=== PATIENT | female | born 1980 | race Caucasian/White ===

== ENCOUNTER 2023-02-10 13:12 | Outpatient (CLI) | payer OTHER, SELFPAY | END 2023-02-10 13:13 | disposition home or self-care (01) | LOC: NFLDREF 13:13 | PROVIDERS: PCP Family Medicine; Visit Provider Internal Medicine | DX: L67.9 Hair color and hair shaft abnormality, unspecified (principal) | CPT/HCPCS: 84443 ==

== ENCOUNTER 2023-02-11 22:23 | Emergency (ER) | payer OTHER, SELFPAY ==
[2023-02-11 22:41] VITALS: BP 139/78; PULSE 98; RESP 20; TEMP 36.6; O2SAT 97
--- NOTE | 2023-02-11 22:59 | ED.GENADULT ---
HPI - General Adult General Chief complaint: Skin/Abscess/Foreign Body Stated complaint: Infected boil Time Seen by Provider: 02/11/23 22:27 Source: patient Mode of arrival: ambulatory Limitations: no limitations History of Present Illness HPI narrative: 42-year-old female coming in today complaining of worsening pain in the groin secondary to infection. She was seen in the clinic yesterday and diagnosed with a groin abscess. She was told to start taking antibiotics and to do warm compresses. 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 Of note, patient states that she had hives when she was a child when she took penicillin. She denies any systemic symptoms. Comes in today because her groin is becoming more painful. Patient denies any past medical history, denies taking any medications. Related Data Previous Rx's Medication Instructions Recorded cephalexin 500 mg capsule 500 mg PO TID Abscess 7 days #21 02/10/23 caps sulfamethoxazole 800 1 tab PO BID 7 days #14 tabs 02/11/23 mg-trimethoprim 160 mg tablet (Bactrim DS) Allergies Allergy/AdvReac Type Severity Reaction Status Date / Time Penicillins Allergy Mild Unknown Verified 02/10/23 12:41 Review of Systems Status of ROS: Reports: 10 or more systems reviewed and unremarkable except as noted in History and below [facility] Medical History (Updated 02/11/23 @ 23:04 by Shania Chambers MD) Abscess ?L02.91 - Cutaneous abscess, unspecified (ICD-10) Hair changes ?L67.9 - Hair color and hair shaft abnormality, unspecified (ICD-10) Surgical History H/O tubal ligation (~2006) ?Z98.51 - Tubal ligation status (ICD-10) History of umbilical hernia repair (01/06/21) ?Z98.890 - Other specified postprocedural states (ICD-10) ?Z87.19 - Personal history of other diseases of the digestive system (ICD-10) History of surgical removal of pilonidal cyst (2000) ?Z98.890 - Other specified postprocedural states (ICD-10) History of ovarian cystectomy (2006) ?Z98.890 - Other specified postprocedural states (ICD-10) ?Z87.42 - Personal history of other diseases of the female genital tract (ICD-10) History of lumbar discectomy (05/24/13) ?Z98.890 - Other specified postprocedural states (ICD-10) 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 Alert and oriented. Answers questions appropriately. Mood and affect are appropriate. Thoughts are goal oriented and rational. No tangential or magical thinking noted. Patient speaks in full sentences without needing to catch their breath. HEENT: Normocephalic atraumatic. Pupils are equally round reactive to light. Extraocular muscles are intact. Conjunctivae are moist without any icterus noted. Moist mucous membranes. Skin: Patient has an obvious abscess of the right inguinal region with a area of fluctuance about the size of a quarter. She does have surrounding induration and erythema. Const: Vital Signs, click to edit/add: Vital Signs - 24 hr 02/11/23 22:41 Temperature 97.8 F Pulse Rate [Left P ulse Oximeter] 98 Respiratory Rate 20 Blood Pressure [Ri ght Upper Arm] 139/78 Pulse Oximetry 97 Oxygen Delivery Me thod Room Air Course Course Hospital Course: While in the ER, we cleaned the area and injected the skin with lidocaine. An 11 blade was used to make a small incision over the area of fluctuance and approximately 10 mL of humera pus was expelled. Wound culture was obtained. Wound was explored and loculations were broken with a Q-tip, the entire wound was perhaps 1 cm deep and wide at best. Vital Signs Vital signs: Initial Vital Signs Temperature 97.8 F 02/11/23 22:41 Temperature Source Temporal Artery Scan 02/11/23 22:41 Pulse Rate 98 02/11/23 22:41 Respiratory Rate 20 02/11/23 22:41 Blood Pressure 139/78 02/11/23 22:41 Blood Pressure Mean 98 02/11/23 22:41 Blood Pressure Position Sitting 02/11/23 22:41 Pulse Oximetry 97 02/11/23 22:41 Oxygen Delivery Method Room Air 02/11/23 22:41 Vital Signs Temperature 97.8 F 02/11/23 22:41 Pulse Rate 98 02/11/23 22:41 Respiratory Rate 20 02/11/23 22:41 Blood Pressure 139/78 02/11/23 22:41 Pulse Oximetry 97 02/11/23 22:41 Oxygen Delivery Method Room Air 02/11/23 22:41 Temperature 97.8 F 02/11/23 22:41 Pulse Rate 98 02/11/23 22:41 Respiratory Rate 20 02/11/23 22:41 Blood Pressure 139/78 02/11/23 22:41 Pulse Oximetry 97 02/11/23 22:41 Oxygen Delivery Method Room Air 02/11/23 22:41 Medical Decision Making MDM Narrative Medical decision making narrative: 42-year-old female with an abscess in the groin area that was I indeed in the ER today. We discussed wound hygiene. I am going to prescribe her Bactrim as she is refusing to take cephalosporins. We discussed follow-up. She had no other questions. Medical Records Medical records reviewed: Yes I reviewed the patient's medical records Discharge Plan Discharge Clinical Impression: Abscess, Cellulitis Patient Disposition: Home, Self-Care Condition: Stable Additional Instructions: Take all antibiotics as prescribed. Keep wound clean and dry. Okay to shower like he normally would but do not soak the wound-avoid swimming. Change dressing daily. You should follow-up with your primary care provider next Wednesday or Wednesday to make sure you are healing properly. Prescriptions: New sulfamethoxazole-trimethoprim [Bactrim DS] 800-160 mg tablet 1 tab PO BID 7 Days Qty: 14 0RF No Action cephalexin 500 mg capsule 500 mg PO TID 7 Days Qty: 21 0RF Rx Instructions: Pt not allergic to keflex Follow Up/Referrals: Jc Hayes MD [Primary Care Provider] - Stand Alone Forms: [facility] Info Instructions
== END 2023-02-11 23:25 | disposition home or self-care (01) ==
LOC: ED 23:12
PROVIDERS: Emergency Provider Family Medicine; PCP Family Medicine
DX: L02.214 Cutaneous abscess of groin (principal)
CPT/HCPCS: 10060; 87070; 87186; 87205; 99283; 99284; A9270

== ENCOUNTER 2023-04-18 12:38 | Emergency (ER) | payer OTHER, SELFPAY ==
[2023-04-18] VITALS (18 sets, daily range): BP systolic 71–125; BP diastolic 34–93; PULSE 77–94; RESP 20; TEMP 36.3; O2SAT 96–99; BMI 40.7
--- NOTE | 2023-04-18 12:57 | ED.ABDPAIN ---
HPI - Abdominal Pain General Time Seen by Provider: 12:57 Date Seen: 04/18/23 Chief Complaint: Abdominal Pain Stated Complaint: abdominal and back pain Time Seen by Provider: 04/18/23 12:47 Source: patient and RN notes reviewed Mode of arrival: ambulatory Limitations: no limitations History of Present Illness HPI narrative: This 43-year-old female is coming in with abdominal pain starting yesterday. She was camping over the weekend, started with right upper back pain/flank pain. It started after eating. She states it intensified to the point that she went back into the camper to lie down. She had a sharp punch type feeling in the back, pain started to radiate into the right upper abdomen and later she felt at all the way around the upper abdomen. She did try eating this morning and that intensified the pain and she had a severe cramping type feeling. She has had nausea but no vomiting. No fevers. No diarrhea, no bowel movement today but no concern for constipation at this point. No urinary symptoms. She has had an umbilical hernia repair with mesh before. There is no family history of gallbladder disease but there is kidney stones in the family. Overall, her pain is not as bad as it has been at this time, still nauseated. In patient's records, she has also had an ovarian cystectomy and a tubal ligation. MD elicited complaint: abdominal pain and flank pain Related Data Patient : No Home Medications Medication Instructions Recorded Confirmed omeprazole 20 mg capsule,delayed 20 mg PO DAILY 04/18/23 04/18/23 release Allergies Allergy/AdvReac Type Severity Reaction Status Date / Time Penicillins Allergy Unknown Unknown Verified 04/18/23 12:52 Review of Systems Status of ROS Reports: 6 or more systems reviewed and unremarkable except as noted in History and below [facility] Medical History Abscess ?L02.91 - Cutaneous abscess, unspecified (ICD-10) Hair changes ?L67.9 - Hair color and hair shaft abnormality, unspecified (ICD-10) Surgical History H/O tubal ligation (~2006) ?Z98.51 - Tubal ligation status (ICD-10) History of umbilical hernia repair (01/06/21) ?Z98.890 - Other specified postprocedural states (ICD-10) ?Z87.19 - Personal history of other diseases of the digestive system (ICD-10) History of surgical removal of pilonidal cyst (2000) ?Z98.890 - Other specified postprocedural states (ICD-10) History of ovarian cystectomy (2006) ?Z98.890 - Other specified postprocedural states (ICD-10) ?Z87.42 - Personal history of other diseases of the female genital tract (ICD-10) History of lumbar discectomy (05/24/13) ?Z98.890 - Other specified postprocedural states (ICD-10) 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, 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 Social alcohol use 1/week Does not have regular exercise regimen-housework, yardwork, occasional treadmill Smoking Status: Current every day smoker What tobacco products do you use: cigarettes Smoking packs per day: 1 Smoking cigarettes per day: 20.0 Do you use any of these nicotine containing products: None How often do you have a drink containing alcohol: 2-3 times a week How many standard drinks containing alcohol do you have on a typical day: 3 or 4 How often do you have six or more drinks on one occasion: Never AUDIT-C Alcohol total score: 4 Non-prescribed substance use: denies use Little interest or pleasure in doing things: not at all Feeling down, depressed, or hopeless: not at all Exam Const: Vital Signs, click to edit/add: Vital Signs - 24 hr 04/18/23 12:45 04/18/23 13:15 04/18/23 14:02 Temperature 97.3 F L Pulse Rate 77 Pulse Rate [Pulse Oximeter] 84 Respiratory Rate 20 Blood Pressure 98/50 L Blood Pressure [Le ft Upper Arm] 122/64 Pulse Oximetry 97 98 98 Oxygen Delivery Me thod Room Air 04/18/23 14:03 04/18/23 14:30 04/18/23 14:31 Temperature Pulse Rate 77 78 78 Pulse Rate [Pulse Oximeter] Respiratory Rate Blood Pressure 113/52 L Blood Pressure [Le ft Upper Arm] Pulse Oximetry 98 97 98 Oxygen Delivery Me thod 04/18/23 15:05 04/18/23 15:08 04/18/23 15:30 Temperature Pulse Rate 94 92 85 Pulse Rate [Pulse Oximeter] Respiratory Rate Blood Pressure 106/93 H Blood Pressure [Le ft Upper Arm] Pulse Oximetry 98 98 97 Oxygen Delivery Me thod 04/18/23 15:32 04/18/23 15:33 04/18/23 17:18 Temperature Pulse Rate 83 87 87 Pulse Rate [Pulse Oximeter] Respiratory Rate Blood Pressure 116/73 Blood Pressure [Le ft Upper Arm] Pulse Oximetry 98 99 [facility] 17:30 04/18/23 17:31 04/18/23 17:32 Temperature Pulse Rate 80 81 80 Pulse Rate [Pulse Oximeter] Respiratory Rate Blood Pressure 125/59 L Blood Pressure [Le ft Upper Arm] Pulse Oximetry 97 96 97 [facility] 04/18/23 18:00 04/18/23 18:02 04/18/23 18:05 Temperature Pulse Rate 87 79 78 Pulse Rate [Pulse Oximeter] Respiratory Rate Blood Pressure 71/34 L 109/51 L Blood Pressure [Le ft Upper Arm] Pulse Oximetry 96 98 97 Oxygen Delivery Me thod This 43-year-old female is alert interactive no apparent distress. Pupils are equal, conjugate gaze, sclera clear. Face atraumatic. Able speak in complete sentences. Lungs are clear to auscultation bilaterally without wheezing crackles. CV regular rate rhythm no murmur. No CVA tenderness, no skin changes overlying the right flank area. No midline tenderness of her back. Abdomen with significant pannus but she is exhibiting some right upper quadrant to epigastric tenderness without rebound or guarding. I do not feel any organomegaly. Patient ambulated into the ED of her own accord. Documenting provider has reviewed patient's vital signs: yes Course Course Hospital Course: This 43-year-old female certainly could have intra-abdominal pathology, have discussed with her my concern for possible gallbladder issues, rule out pancreatitis with this. It is also feasible that this could be presentation of urinary issues such as kidney stones. We are going to stab lotion IV, give her 15 mg IV Toradol and 4 mg IV Zofran for symptom control. Will start with a right upper quadrant ultrasound and on full complement of labs including urine. Will make sure to confirm negative status but doubtful she would be given her history of tubal ligation. Will also obtain urine and consider kidney stones further if there is hematuria. Patient understands that we might need to proceed with CT imaging in this workup. She is currently hemodynamically stable and will proceed with this workup. Reevaluation(s) Time of Reevaluation #1: 15:33 Reevaluation #1: Reviewed with patient that she has pancreatitis, likely gallstone pancreatitis and with the elevated it size of the common bile duct, needs further evaluation. She will very likely get her gallbladder out but usually the common bile duct would be explored 1st. Is recommended that she transfer for ERCP. Right now she is feeling okay. Time of Reevaluation #2: 16:23 Reevaluation #2: Have reviewed with patient that she will likely be transferred to [facility], possibly [place] if [facility] does not except but reportedly longer delay to get [place]. She is requesting to smoke, will give her nicotine patch. Will start IV fluids. Consultations Consultation #1: Reviewed with Dr. Holland our general surgeon on-call. We have reviewed this case. She agrees that this patient needs an MRCP but we cannot do that until Wednesday here. Thus, she does think that this patient should be transferred for further evaluation common bile duct stone with pancreatitis. Time: 15:25 Consultation #2: [place], [place] and [place] are on diversion, cannot accept this patient. [facility] is awaiting to attempt to transfer some of their patients out before they can except more. [facility] is only taking trauma patients. [facility] is looking at [facility] as they are only possible placement, awaiting a call back. [facility] have no capacity anywhere. [facility] has no capacity for acceptance of patients. [facility] [place] only meaning multi-trauma, burn. I have updated the hospitalist here Dr. Greene at 1605pm. She will await call back from Dr. Banegas once we know [facility] Time: 15:35 Consultation #3: Spoke with Dr. Rosenthal hospitalist at [facility], they accept patient; there will likely be 4-8 hour transfer delay. Time: 16:28 Vital Signs Vital signs: Initial Vital Signs Temperature 97.3 F L 04/18/23 12:45 Temperature Source Temporal Artery Scan 04/18/23 12:45 Pulse Rate 84 04/18/23 12:45 Pulse Rhythm Regular 04/18/23 12:45 Respiratory Rate 20 04/18/23 12:45 Blood Pressure 122/64 04/18/23 12:45 Blood Pressure Mean 83 04/18/23 12:45 Blood Pressure Position Semi-Fowlers 04/18/23 12:45 Pulse Oximetry 97 04/18/23 12:45 Oxygen Delivery Method Room Air 04/18/23 12:45 Vital Signs Temperature 97.3 F L 04/18/23 12:45 Pulse Rate 84 04/18/23 12:45 Respiratory Rate 20 04/18/23 12:45 Blood Pressure 122/64 04/18/23 12:45 Pulse Oximetry 97 04/18/23 12:45 Oxygen Delivery Method Room Air 04/18/23 12:45 Temperature 97.3 F L 04/18/23 12:45 Pulse Rate 78 04/18/23 18:05 Respiratory Rate 20 04/18/23 12:45 Blood Pressure 109/51 L 04/18/23 18:05 Pulse Oximetry 97 04/18/23 18:05 Oxygen Delivery Method Room Air 04/18/23 12:45 MDM - Abdominal Pain Lab Data Attestation: I reviewed the patient's lab results. Labs: Lab Results 04/18/23 04/18/23 04/18/23 Range/Units 13:30 14:14 14:37 WBC 7.51 (4.50-11.00) K/uL RBC 4.37 (4.00-5.20) m/uL Hgb 11.6 L (12.0-16.0) gm/dL Hct 37.5 (33.0-51.0) % MCV 86 (80-100) fL MCH 27 (26-34) pg MCHC 31 L (32-36) gm/dL RDW Coeff of Osmani 15.5 (11.5-15.5) % Plt Count 284 (140-440) K/uL Neut % (Auto) 75.9 H (42.0-72.0) % Lymph % (Auto) 15.4 L (20-44) % [place] % (Auto) 7.1 (0.0-11.0) % Eos % (Auto) 0.8 (0.0-7.0) % Baso % (Auto) 0.5 (0.0-3.0) % Neut # (Auto) 5.70 (1.7-7.0) K/uL Lymph # (Auto) 1.20 (0.90-2.90) K/uL [place] # (Auto) 0.50 (0.00-0.90) K/UL Eos # (Auto) 0.06 (0.00-0.50) K/uL Baso # (Auto) 0.04 (0.00-0.30) K/uL Abs Immat Gran (auto) 0.02 (0.00-0.30) K/uL Imm/Tot Granulo (auto) 0.3 % Sodium 140 (135-149) mmol/L Potassium 3.6 (3.6-5.1) mmol/L Chloride 107 (96-114) mmol/L Carbon Dioxide 25 (20-32) mmol/L Anion Gap 8 (7-15) mEq/L BUN 10 (5-24) mg/dL Creatinine 0.6 (0.5-1.5) mg/dL Estimated Creat Clear 115.14 Estimated GFR 113 ml/min Glucose 135 H (60-115) mg/dL Lactate 1.3 (0.5-1.9) mmol/L Calcium 9.0 (8.4-10.6) mg/dL Total Bilirubin 1.4 (0.1-1.5) mg/dL Direct Bilirubin 0.9 H (0.0-0.5) mg/dL AST 308 H (12-35) U/L ALT 301 H (4-35) U/L Alkaline Phosphatase 249 H (40-150) U/L C-Reactive Protein 1.4 H (0.5-1.0) mg/dL Total Protein 7.0 (6.0-8.3) g/dL Albumin 3.9 (3.3-5.0) g/dL Amylase 528 H (18-89) U/L Lipase 6280 H (23-300) U/L Urine Color Dark yellow (Yellow) Urine Appearance Cloudy A (Clear) Urine pH 7.5 (5.0-8.5) Ur Specific [place] 1.020 (1.000-1.030) Urine Protein Negative (Negative) Urine Glucose (UA) Negative (Negative) Urine Ketones Negative (Negative) Urine Blood Trace-intact A (Negative) Urine Nitrite Negative (Negative) Urine Bilirubin 1+ A (Negative) Urine Urobilinogen 1.0 (0.2-1.0) Ur Leukocyte Esterase Trace A (Negative) Urine RBC 2-5 A (0-2) Urine WBC 2-5 (0-5) Ur Squamous Epith Cells Moderate A (None-Few) Amorphous Sediment Moderate A (None) Urine Bacteria Moderate A (None) Urine HCG, Qual Negative (Negative) Lab Acknowledgement Test Added Imaging Data US - abdomen: Attestation: I have reviewed the pertinent imaging results. Radiologist's impression: Patient: [facility] Facility:?[facility] Patient ID:?[id number] Site Patient ID:?[id number] Site :?[id number] Study:?US Abdomen RUQ-04/18/2023 2:30:49 PM Ordering Physician:Gianna Jauregui Final Report: INDICATION: Right upper quadrant pain. COMPARISON: None. TECHNIQUE: Grayscale color Doppler images of the abdomen. FINDINGS: Partially visualized liver is unremarkable although obscured by gas. The pancreas is obscured by gas. There is mild gallbladder wall thickening measuring up to 0.5 cm. The gallbladder is mildly distended. No cholelithiasis. No pericholecystic fluid. The common bile duct is dilated measuring up to 1.1 cm. The aorta measures 1.9 cm in short axis. The right kidney measures 11.5 cm and appears normal. IMPRESSION: 1. Dilated common bile duct measuring up to 1.1 cm. Recommend further evaluation with MRCP to exclude biliary obstruction. 2. Mild gallbladder wall thickening and distention without cholelithiasis or significant pericholecystic fluid. Dictated by Laron Black MD @ 04/18/2023 3:05:00 PM (Electronic Signature) CT scan - abdomen: Attestation: I have reviewed the pertinent imaging results. Radiologist's impression: Patient: [facility] Facility:?[facility] Patient ID:?[id number] Site Patient ID:?[id number]. Site :?[id number] Study:?CT Abdomen/Pelvis W/IV-04/18/2023 3:10:51 PM Ordering Physician:Gianna Jauregui Final Report: Indication: Pancreatitis, CBD dilatation. Technique: CT abdomen and pelvis with IV contrast Please note that all CT scans at this facility use dose modulation, iterative reconstruction, and/or weight-based dosing when appropriate to reduce radiation dose to as low as reasonably achievable. Comparison: Same-day ultrasound Findings: Lung bases clear. Normal heart size. No pericardial effusion. Small hiatal hernia. Normal liver size and contour. No focal hepatic lesion. Hepatic and portal veins appear patent. Mild intrahepatic biliary dilatation. Gallbladder distention. Gallbladder wall thickening. No radiodense cholelithiasis. Common bile duct is dilated. There is a large filling defect within the distal common bile duct (series 2, image 71). Adrenal glands, kidneys, spleen, and duodenum are unremarkable. No pancreatic duct dilatation. No peripancreatic inflammation. Vessels and lymph nodes are unremarkable. Uterus, adnexae and bladder are unremarkable for age. No bowel obstruction or bowel wall thickening. Calcification within the distal appendix (series 2, image 3). Dilatation of the tip of the appendix (series 2, image 106). No periappendiceal inflammation. No significant free fluid. No retroperitoneal mass or hematoma. No hernia. No acute or aggressive osseous lesions. Impression: 1. Filling defect within the distal common bile duct may represent choledocholithiasis versus mass. Recommend correlation with ERCP. 2. Biliary dilatation secondary to obstruction. 3. Moderate gallbladder distention and wall thickening. 4. Dilated tip of the appendix without inflammatory change. Findings could represent mucocele versus partially calcified appendicolith. Recommend outpatient surgical consultation. 5. No CT findings of acute pancreatitis. No pancreatic hypoenhancement, peripancreatic inflammation or fluid collection. Please note that all CT scans at this facility use dose modulation, iterative reconstruction, and/or weight-based dosing when appropriate to reduce radiation dose to as low as reasonably achievable. Dictated by Laron Black MD @ 04/18/2023 3:28:19 PM (Electronic Signature) Discharge Plan Discharge Clinical Impression: Acute gallstone pancreatitis Patient Disposition: [facility] Discharge Location: [facility]
--- NOTE | 2023-04-18 13:07 | CRLHL7_ITS ---
For Patients: As a result of the Century Cures Act, medical imaging exams and procedure reports are released immediately into your electronic medical record. You may view this report before your referring provider. If you have questions, please contact your health care provider. INDICATION: Right upper quadrant pain. COMPARISON: None. TECHNIQUE: Grayscale color Doppler images of the abdomen. FINDINGS: Partially visualized liver is unremarkable although obscured by gas. The pancreas is obscured by gas. There is mild gallbladder wall thickening measuring up to 0.5 cm. The gallbladder is mildly distended. No cholelithiasis. No pericholecystic fluid. The common bile duct is dilated measuring up to 1.1 cm. The aorta measures 1.9 cm in short axis. The right kidney measures 11.5 cm and appears normal. IMPRESSION: 1. Dilated common bile duct measuring up to 1.1 cm. Recommend further evaluation with MRCP to exclude biliary obstruction. 2. Mild gallbladder wall thickening and distention without cholelithiasis or significant pericholecystic fluid. Dictated by Laron Black MD @ 04/18/2023 3:05:00 PM (Electronically Signed)
[2023-04-18 13:42] LABS: Basophils Absolute Auto 0.04 K/uL (0.00-0.30); Basophils Percent Auto 0.5 % (0.0-3.0); Eosinophils Absolute Auto 0.06 K/uL (0.00-0.50); Eosinophils Percent Auto 0.8 % (0.0-7.0); Hematocrit 37.5 % (33.0-51.0); Hemoglobin* 11.6 gm/dL (12.0-16.0); Immature Granulocytes Abs Auto 0.02 K/uL (0.00-0.30); Immature Granulocytes Pct Auto 0.3 %; Lactate* 1.3 mmol/L (0.5-1.9); Lymphocytes Percent Auto 15.4 % (20-44); Mean Corpuscular HGB Conc 31 gm/dL (32-36); Mean Corpuscular Hemoglobin 27 pg (26-34); Mean Corpuscular Volume 86 fL (80-100); Monocytes Percent Auto 7.1 % (0.0-11.0); Neutrophils Percent Auto 75.9 % (42.0-72.0); Platelet Count* 284 K/uL (140-440); RDW Coefficient of Variation % 15.5 % (11.5-15.5); Red Blood Count 4.37 m/uL (4.00-5.20); White Blood Count* 7.51 K/uL (4.50-11.00)
[2023-04-18] MEDS: ONDANSETRON 2 MG/ML inj 4 MG IVP (13:45)
[2023-04-18] MEDS: KETOROLAC 15 MG/ML inj IVP (13:45)
[2023-04-18] MEDS: 0.9 % SODIUM CHLORIDE 1000 ml 1,000 ML 500 ML IV (13:45)
[2023-04-18 13:55] LABS: Slide Review Reflex No
[2023-04-18 14:02] LABS: Albumin* 3.9 g/dL (3.3-5.0); Chloride* 107 mmol/L (96-114); Sodium* 140 mmol/L (135-149)
[2023-04-18 14:03] LABS: Potassium* 3.6 mmol/L (3.6-5.1)
[2023-04-18 14:05] LABS: Amylase* 528 U/L (18-89); Anion Gap 8 mEq/L (7-15); Bilirubin Total* 1.4 mg/dL (0.1-1.5); Carbon Dioxide* 25 mmol/L (20-32); Creatinine* 0.6 mg/dL (0.5-1.5); Est. Creatinine Clearance* 115.14; Estimated Glomerular Filt Rate 113 ml/min
[2023-04-18 14:06] LABS: Alanine Aminotransferase* 301 U/L (4-35); Alkaline Phosphatase* 249 U/L (40-150); Aspartate Amino Transferase* 308 U/L (12-35); Blood Urea Nitrogen* 10 mg/dL (5-24); Glucose* 135 mg/dL (60-115)
[2023-04-18 14:08] LABS: C Reactive Protein* 1.4 mg/dL (0.5-1.0)
--- NOTE | 2023-04-18 14:18 | CRLHL7_ITS ---
For Patients: As a result of the 21st Century Cures Act, medical imaging exams and procedure reports are released immediately into your electronic medical record. You may view this report before your referring provider. If you have questions, please contact your health care provider. Indication: Pancreatitis, CBD dilatation. Technique: CT abdomen and pelvis with IV contrast Please note that all CT scans at this facility use dose modulation, iterative reconstruction, and/or weight-based dosing when appropriate to reduce radiation dose to as low as reasonably achievable. Comparison: Same-day ultrasound Findings: Lung bases clear. Normal heart size. No pericardial effusion. Small hiatal hernia. Normal liver size and contour. No focal hepatic lesion. Hepatic and portal veins appear patent. Mild intrahepatic biliary dilatation. Gallbladder distention. Gallbladder wall thickening. No radiodense cholelithiasis. Common bile duct is dilated. There is a large filling defect within the distal common bile duct (series 2, image 71). Adrenal glands, kidneys, spleen, and duodenum are unremarkable. No pancreatic duct dilatation. No peripancreatic inflammation. Vessels and lymph nodes are unremarkable. Uterus, adnexae and bladder are unremarkable for age. No bowel obstruction or bowel wall thickening. Calcification within the distal appendix (series 2, image 3). Dilatation of the tip of the appendix (series 2, image 106). No periappendiceal inflammation. No significant free fluid. No retroperitoneal mass or hematoma. No hernia. No acute or aggressive osseous lesions. Impression: 1. Filling defect within the distal common bile duct may represent choledocholithiasis versus mass. Recommend correlation with ERCP. 2. Biliary dilatation secondary to obstruction. 3. Moderate gallbladder distention and wall thickening. 4. Dilated tip of the appendix without inflammatory change. Findings could represent mucocele versus partially calcified appendicolith. Recommend outpatient surgical consultation. 5. No CT findings of acute pancreatitis. No pancreatic hypoenhancement, peripancreatic inflammation or fluid collection. Please note that all CT scans at this facility use dose modulation, iterative reconstruction, and/or weight-based dosing when appropriate to reduce radiation dose to as low as reasonably achievable. Dictated by Laron Black MD @ 04/18/2023 3:28:19 PM (Electronically Signed)
[2023-04-18 14:30] LABS: Bilirubin Direct* 0.9 mg/dL (0.0-0.5)
[2023-04-18 14:44] LABS: Lipase* 6280 U/L (23-300)
[2023-04-18 14:44] LABS: Appearance Urine Cloudy (Clear); Bilirubin Urine 1+ (Negative); Blood Urine Trace-intact (Negative); Color Urine Dark yellow (Yellow); Glucose Urine Negative (Negative); Ketones Urine Negative (Negative); Leukocyte Esterase Urine Trace (Negative); Nitrite Urine Negative (Negative); Protein Urine Negative (Negative); pH Urine 7.5 (5.0-8.5)
[2023-04-18 14:48] LABS: Ur HCG Qualitative* Negative (Negative)
[2023-04-18 14:54] LABS: Squamous Epithelial Cell Urine Moderate (None-Few)
[2023-04-18 14:55] LABS: Amorphous Sediment Urine Moderate; Bacteria Urine Moderate
[2023-04-18] MEDS: LACTATED RINGERS 1000 ML 1,000 ML 125 ML IV (16:46)
[2023-04-18] MEDS: HYDROmorphone 0.5 mg/0.5 ml inj 1 MG IVP ×2 (17:18→20:05)
[2023-04-18] MEDS: NICOTINE 14 mg PATCH 1 PATCH TRANSDERMA (17:37)
--- NOTE | 2023-04-18 18:30 | ED.NURSE ---
report given to Collette wong [facility], call back number [phone], dispatch paged
== END 2023-04-18 20:35 | disposition short-term general hospital (02) ==
PROVIDERS: Emergency Provider Family Medicine; PCP Family Medicine
DX: K85.10 Biliary acute pancreatitis without necrosis or infection (principal)
CPT/HCPCS: 36415; 74177; 76705; 80053; 81001; 81025; 82150; 82248; 83605; 83690; 85025; 86140; 87086; 94761; 96361; 96374; 96375; 99284; 99285; J1170; J1885; J2405; J7030; J7120; Q9967; S4990

== ENCOUNTER 2023-04-18 20:06 | Outpatient (CLI) | payer OTHER, SELFPAY | END 2023-04-18 20:07 | disposition home or self-care (01) | LOC: AMB 04-23 15:22 | PROVIDERS: PCP Family Medicine; Visit Provider Student in an Organized Health Care Education/Training Program | DX: K85.10 Biliary acute pancreatitis without necrosis or infection (principal) | CPT/HCPCS: A0425; A0426 ==

== ENCOUNTER 2023-07-27 07:52 | Emergency (ER) | payer OTHER, SELFPAY ==
[2023-07-27 08:00] VITALS: BP 131/81; PULSE 79; RESP 18; TEMP 36.2; O2SAT 100; BMI 40.7
--- NOTE | 2023-07-27 08:28 | ED_ITS ---
HPI - Abdominal Pain General Time Seen by Provider: 08:28 Date Seen: 07/27/23 Chief Complaint: Abdominal Pain Stated Complaint: stomach pains Time Seen by Provider: 07/27/23 08:11 Source: patient Mode of arrival: ambulatory Limitations: no limitations History of Present Illness HPI narrative: Patient presents with an episode of sudden upper epigastric pain radiating to her back beginning this morning around 6:00 a.m. which lasted for approximately 20-40 minutes. She describes the pain as squeezing and tight in nature and notes it was accompanied by nausea. Her pain has completely resolved at this time, but at the time of onset it was a 10/10. Patient has not taken anything for her pain. She had a similar episode of pain approximately 1-2 weeks ago. She does mention not eating certain foods seems to make the pain worse. Patient was able to drink her coffee this morning and go about her daily activities once the pain resolved, but thought she better be evaluated as she had secondary imposed pancreatitis from gallstones a few months ago in April. Patient is still having some residual bowel changes from this surgery. She denies any vomiting, urinary changes, chest pain, shortness of breath, cough, congestion, or any other complaints at this time. Of note, patient is a cigarette smoker and does drink alcohol. She denies any NSAID overuse. She has not been taking her omeprazole. Related Data Home Medications Medication Instructions Recorded Confirmed omeprazole 20 mg capsule,delayed 20 mg PO DAILY 04/18/23 07/27/23 release Allergies Allergy/AdvReac Type Severity Reaction Status Date / Time Penicillins Allergy Unknown Unknown Verified 04/18/23 12:52 Review of Systems Status of ROS Reports: 10 or more systems reviewed and unremarkable except as noted in History and below Const Denies: fever, chills or fatigue Eyes Denies: change in vision or blurry vision ENMT Denies: throat pain, neck pain, throat swelling or difficulty swallowing Cardio Denies: chest pain, palpitations, swelling of feet/ankles, lightheadedness, shortness of breath with exertion, shortness of breath when lying down or leg pain with exertion Resp Denies: shortness of breath, cough or wheezing GI Reports: abdominal pain (upper epigastric), nausea and diarrhea; Denies: vomiting, heartburn, constipation, bloating or difficulty swallowing Denies: painful urination, urinary frequency, urinary urgency, urinary inc ontinence, blood in urine or difficulty voiding Musculo Reports: back pain; Denies: neck pain, extremity pain, extremity swelling, joint pain, limited range of motion or joint swelling Integ/Breast Denies: rash Neuro Denies: headache, numbness in extremities or weakness in extremities Endo Denies: fatigue Allergy/Immuno Denies: throat swelling or wheezing PFSH [facility] Medical History Abscess ?L02.91 - Cutaneous abscess, unspecified (ICD-10) Hair changes ?L67.9 - Hair color and hair shaft abnormality, unspecified (ICD-10) Surgical History H/O tubal ligation (~2006) ?Z98.51 - Tubal ligation status (ICD-10) History of umbilical hernia repair (01/06/21) ?Z98.890 - Other specified postprocedural states (ICD-10) ?Z87.19 - Personal history of other diseases of the digestive system (ICD-10) History of surgical removal of pilonidal cyst (2000) ?Z98.890 - Other specified postprocedural states (ICD-10) History of ovarian cystectomy (2006) ?Z98.890 - Other specified postprocedural states (ICD-10) ?Z87.42 - Personal history of other diseases of the female genital tract (ICD-10) History of lumbar discectomy (05/24/13) ?Z98.890 - Other specified postprocedural states (ICD-10) 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, 25 years Social alcohol use 1/week Does not have regular exercise regimen-housework, yardwork, occasional treadmill Smoking Status: Current every day smoker What tobacco products do you use: cigarettes Smoking packs per day: 1 Smoking cigarettes per day: 20.0 Do you use any of these nicotine containing products: None How often do you have a drink containing alcohol: 2-3 times a week How many standard drinks containing alcohol do you have on a typical day: 3 or 4 How often do you have six or more drinks on one occasion: Never AUDIT-C Alcohol total score: 4 Non-prescribed substance use: denies use Little interest or pleasure in doing things: not at all Feeling down, depressed, or hopeless: not at all Exam Narrative: Exam Narrative: General: Well nourished, healthy appearing, in no acute distress. HENMT: Normocephalic, atraumatic. Hearing grossly intact bilaterally. Moist mucous membranes. Oropharynx normal. Neck: Full ROM. Supple, no lymphadenopathy. Chest/Carido: Inspection normal. No tenderness to chest wall. Regular rate and rhythm with S1 and S2 sounds. No clicks, rubs, gallops, or murmurs. 2+ peripheral pulses bilaterally. No JVD. No hepatosplenomegaly appreciated. Lung: No increased effort, no use of accessory muscles. Symmetrical rise bilaterally. Lungs clear to auscultation bilaterally with no wheezing, rhonchi, or crackles. Percussion normal. GI: Inspection normal. Normoactive bowel sounds. Soft, non-distended, non- tender in all four quadrants with no rebound tenderness or guarding. : No CVA tenderness. Extremities: Normal inspection. Full ROM. Normal capillary refill. No pedal edema or calf tenderness. Neuro: No focal motor or sensory deficits. Psych: Cooperative. Speech normal. Thought process appropriate. Const: Vital Signs, click to edit/add: Vital Signs - 24 hr 07/27/23 08:00 Temperature 97.2 F L Pulse Rate [Right Pulse Oximeter] 79 Respiratory Rate 18 Blood Pressure [Ri ght Upper Arm] 131/81 Pulse Oximetry 100 Oxygen Delivery Me thod Room Air Documenting provider has reviewed patient's vital signs: yes Course Vital Signs Vital signs: Initial Vital Signs Temperature 97.2 F L 07/27/23 08:00 Temperature Source Temporal Artery Scan 07/27/23 08:00 Pulse Rate 79 07/27/23 08:00 Respiratory Rate 18 07/27/23 08:00 Blood Pressure 131/81 07/27/23 08:00 Blood Pressure Mean 97 07/27/23 08:00 Blood Pressure Position Sitting 07/27/23 08:00 Pulse Oximetry 100 07/27/23 08:00 Oxygen Delivery Method Room Air 07/27/23 08:00 Vital Signs Temperature 97.2 F L 07/27/23 08:00 Pulse Rate 79 07/27/23 08:00 Respiratory Rate 18 07/27/23 08:00 Blood Pressure 131/81 07/27/23 08:00 Pulse Oximetry 100 07/27/23 08:00 Oxygen Delivery Method Room Air 07/27/23 08:00 Temperature 97.2 F L 07/27/23 08:00 Pulse Rate 79 07/27/23 08:00 Respiratory Rate 18 07/27/23 08:00 Blood Pressure 131/81 07/27/23 08:00 Pulse Oximetry 100 07/27/23 08:00 Oxygen Delivery Method Room Air 07/27/23 08:00 MDM - Abdominal Pain MDM Narrative Medical decision making narrative: Patient is a pleasant 43-year-old female with a past pertinent medical history of cholecystectomy, tubal ligation, and hernia repair, who presents today with an episode of sudden upper epigastric pain radiating to her back beginning this morning around 6:00 a.m. which lasted approximately 20-40 minutes. Her pain was squeezing in nature and accompanied by nausea. Patient is a cigarette smoker and does admit to drinking alcohol. On exam, patient is afebrile, alert, and in no acute distress. Regular rate and rhythm and lungs clear to auscultation bilaterally. Abdomen is soft, non-distended, and non-tender with no rebounding or guarding. Vital signs are stable. Work up will include troponin, EKG, BMP, liver panel, CBC, CRP, lipase. We discussed how imaging may not be necessary based on the lab findings. Differential diagnosis includes, but is not limited to, esophageal spasms, GERD, peptic ulcer disease, inflammatory bowel disease, DC, pancreatitis, gastritis, biliary colic, costochondritis, small-bowel obstruction, appendicitis, nephrolithiasis, diverticulitis, gastroenteritis, aortic aneurysm, hepatitis. EKG is reassuring shows normal sinus rhythm with a rate of 76 bpm. POC troponin is 0.0 therefore very low suspicion of any cardiac events. CBC is unremarkable. Her metabolic panel is reassuring and within normal limits. CRP is mildly elevated at 1.2; however I am not concerned about this finding. The patient's amylase is within normal limits therefore I have very low suspicion for pancreatitis at this time. Based on the patient's physical exam findings in her reassuring lab results I believe her symptoms this morning were a result of GERD exacerbation and or esophageal spasm. Recommended taking her 20 mg of omeprazole daily for the next 10-14 days and then as needed thereafter for symptom control. Since the patient's pain is well controlled at this time I do feel it is appropriate to discharge her and have her follow-up with her primary care provider. Patient understands and is in agreement with this plan. Return precautions advised. Differential Diagnosis Differential diagnosis: Likely abdominal pain, acute appendicitis, calculus of kidney, diverticulitis, gastroenteritis, pancreatitis and small bowel obstruction Medical Records Attestation: I reviewed the patient's medical records. Lab Data Attestation: I reviewed the patient's lab results. Labs: Lab Results 07/27/23 07/27/23 Range/Units 09:30 09:35 WBC 6.74 (4.50-11.00) K/uL RBC 4.53 (4.00-5.20) m/uL Hgb 12.2 (12.0-16.0) gm/dL Hct 39.8 (33.0-51.0) % MCV 88 (80-100) fL MCH 27 (26-34) pg MCHC 31 L (32-36) gm/dL RDW Coeff of Osmani 14.3 (11.5-15.5) % Plt Count 303 (140-440) K/uL Neut % (Auto) 71.9 (42.0-72.0) % Lymph % (Auto) 21.7 (20-44) % [place] % (Auto) 4.9 (0.0-11.0) % Eos % (Auto) 1.0 (0.0-7.0) % Baso % (Auto) 0.4 (0.0-3.0) % Neut # (Auto) 4.84 (1.7-7.0) K/uL Lymph # (Auto) 1.46 (0.90-2.90) K/uL [place] # (Auto) 0.30 (0.00-0.90) K/UL Eos # (Auto) 0.07 (0.00-0.50) K/uL Baso # (Auto) 0.03 (0.00-0.30) K/uL Abs Immat Gran (auto) 0.01 (0.00-0.30) K/uL Imm/Tot Granulo (auto) 0.1 % Sodium 137 (135-149) mmol/L Potassium 4.2 (3.6-5.1) mmol/L Chloride 106 (96-114) mmol/L Carbon Dioxide 24 (20-32) mmol/L Anion Gap 7 (7-15) mEq/L BUN 10 (5-24) mg/dL Creatinine 0.7 (0.5-1.5) mg/dL Estimated Creat Clear 98.69 Estimated GFR 109 ml/min Glucose 102 (60-115) mg/dL Calcium 8.7 (8.4-10.6) mg/dL Total Bilirubin 0.3 (0.1-1.5) mg/dL Direct Bilirubin 0.1 (0.0-0.5) mg/dL AST 21 (12-35) U/L ALT 20 (4-35) U/L Alkaline Phosphatase 80 (40-150) U/L C-Reactive Protein 1.2 H (0.5-1.0) mg/dL Total Protein 7.4 (6.0-8.3) g/dL Albumin 4.5 (3.3-5.0) g/dL Lipase 48 (23-300) U/L POC Troponin I 0.00 L (0.01-0.04) ng/ml ECG Data Attestation: I personally reviewed and interpreted this ECG as follows: ECG interpretation date: 07/27/23 ECG interpretation time: 08:58 Interpretation: Normal sinus rhythm 76 bpm Normal axis Normal KS interval No comparison Discharge Plan Discharge Clinical Impression: Abdominal pain Patient Disposition: Home, Self-Care Condition: Improved Instructions: Abdominal Pain (ED) Additional Instructions: Take omeprazole daily for 10-14 days and then as needed afterwards. Follow-up with primary physician or return if symptoms are persistent or worsening. Prescriptions: No Action omeprazole 20 mg capsule,delayed release(DR/EC) 20 mg PO DAILY Hold Instructions: pt not taking Follow Up/Referrals: Jc Hayes MD [Primary Care Provider] - Stand Alone Forms: [place] Info Instructions
[2023-07-27 09:43] LABS: Basophils Absolute Auto 0.03 K/uL (0.00-0.30); Basophils Percent Auto 0.4 % (0.0-3.0); Eosinophils Absolute Auto 0.07 K/uL (0.00-0.50); Hematocrit 39.8 % (33.0-51.0); Hemoglobin* 12.2 gm/dL (12.0-16.0); Immature Granulocytes Abs Auto 0.01 K/uL (0.00-0.30); Immature Granulocytes Pct Auto 0.1 %; Lymphocytes Absolute Auto 1.46 K/uL (0.90-2.90); Lymphocytes Percent Auto 21.7 % (20-44); Mean Corpuscular HGB Conc 31 gm/dL (32-36); Mean Corpuscular Hemoglobin 27 pg (26-34); Mean Corpuscular Volume 88 fL (80-100); Monocytes Percent Auto 4.9 % (0.0-11.0); Neutrophils Absolute Auto 4.84 K/uL (1.7-7.0); Neutrophils Percent Auto 71.9 % (42.0-72.0); Platelet Count* 303 K/uL (140-440); RDW Coefficient of Variation % 14.3 % (11.5-15.5); Red Blood Count 4.53 m/uL (4.00-5.20); White Blood Count* 6.74 K/uL (4.50-11.00)
[2023-07-27 09:54] LABS: Slide Review Reflex No
[2023-07-27 10:00] LABS: Albumin* 4.5 g/dL (3.3-5.0); Chloride* 106 mmol/L (96-114)
[2023-07-27 10:01] LABS: Potassium* 4.2 mmol/L (3.6-5.1); Sodium* 137 mmol/L (135-149)
[2023-07-27 10:03] LABS: Alkaline Phosphatase* 80 U/L (40-150); Anion Gap 7 mEq/L (7-15); Aspartate Amino Transferase* 21 U/L (12-35); Bilirubin Direct* 0.1 mg/dL (0.0-0.5); Bilirubin Total* 0.3 mg/dL (0.1-1.5); Carbon Dioxide* 24 mmol/L (20-32); Creatinine* 0.7 mg/dL (0.5-1.5); Est. Creatinine Clearance* 98.69; Estimated Glomerular Filt Rate 109 ml/min; Total Protein* 7.4 g/dL (6.0-8.3)
[2023-07-27 10:04] LABS: Alanine Aminotransferase* 20 U/L (4-35); Blood Urea Nitrogen* 10 mg/dL (5-24); Calcium* 8.7 mg/dL (8.4-10.6); Glucose* 102 mg/dL (60-115); Lipase* 48 U/L (23-300)
[2023-07-27 10:06] LABS: C Reactive Protein* 1.2 mg/dL (0.5-1.0)
== END 2023-07-27 11:00 | disposition home or self-care (01) ==
PROVIDERS: Emergency Provider Emergency Medicine Emergency Medical Services; PCP Family Medicine
DX: R10.9 Unspecified abdominal pain (principal)
CPT/HCPCS: 36415; 80048; 80076; 83690; 84484; 85025; 86140; 93005; 99284

== ENCOUNTER 2024-03-04 10:17 | Outpatient (CLI) | payer OTHER, SELFPAY ==
--- OUTSIDE RECORDS SUMMARY | 2024-03-04 10:55 | XMS_ITS | Encounter Summary ---
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 Primary Care Provid er Reason for Visit * Outpatient (Routine) - Closed Specialty Diagnoses / Procedures Referred By Melisa murry Referred To Contact Diagnoses Abnormal Mammogram Procedures BI Ultrasound Breast Focused Right BI Ultrasound Breast Focused Bilateral Post, Nazario Santos APRN, C.N.P. [address] [place] [phone] [facility] Region Referral ID Status Reason Start Date Expiration Date Visits Re quested Visits Authorized [id number] Closed 01/21/2024 01/20/2025 1 1 Encounter Details Date Type Department Care Team (Latest Contact Info) Description 2024 1:37 PM CDT - 2024 11:59 PM CDT Hospital Encounter Department of Radiology in [address] [phone] Post, Nazario Santos APRN, C.N.P. [address] [place] [phone] Abnormal Mammogram Discharge Disposition: Home or Self Care Social History Tobacco Use Types Packs/Day Years Used Date Smoking Tobacco: Every Day Cigarettes 1 30 Smokeless Tobacco: Never Alcohol Use Standard Drinks/Week Comments Yes 0 (1 standard drink = 0.6 oz pur e alcohol) Rarely Overall Financial Resource Strain (CARDIA) Answe r Date Recorded How hard is it for you to pa y for the very basics like food, housing, medical care, and heating? Patient declined 05/05/2023 PHQ-2 Answer Date Recorded PHQ-2 Score 0 10/26/2023 Exercise Vital Sign Answer Date Recorde d On average, how many days pe r week do you engage in moderate to strenuous exercise (like a brisk walk)? Patient declined On average, how many minutes do you engage in exercise at this level? Patient declined 05/05/2023 Hunger Vital Sign Answer Date Recorded Within the past 12 months, y ou worried that your food would run out before you got the money to buy more. Patient declined Within the past 12 months, t he food you bought just didn't last and you didn't have money to get more. Patient declined PRAPARE - Transportation Answer Date Re corded In the past 12 months, has l ack of transportation kept you from medical appointments or from getting medications? No 04/17 In the past 12 months, has l ack of transportation kept you from meetings, work, or from getting things needed for daily living? No 05/05/2023 Nutrition Answer Date Recorded On average, how many serving s of fruits and vegetables do you eat per day (serving size is equal to 1 cup or approximately the size of a tennis ball)? 3-5 05/05/2023 Dental Answer Date Recorded Dental: Regular Dentist Yes 05/05/20 Employment Answer Date Recorded Employment status Employed and actively working without restrictions 05/05/2023 Housing Stability Answer Date Recorded What is your living situation today? Decline 05/05/2023 Sex and Gender Information Value Date Recorded Sex Assigned at Female 05/05/2023 2:05 PM CDT Gender Identity Female 05/05/2023 2:05 PM CDT Sexual Orientation Choose not to disclose 2022 2:05 PM CDT documented as of this encounter Medications at Time of Discharge Medication Sig Dispensed Refills Start Date End Date acetaminophen (TYLENOL) 500 mg tablet Take 1,000 mg by mouth. 05/10/2016 fluticasone propionate (FLONASE) 50 mcg/actuation nasal spray Administer 1 spray into nostril(s). 07/29/2015 omeprazole (PriLOSEC OTC) [address] tabletIndications:Pain Epigastric,Gastroesoph ageal Reflux Disease Take 1 tablet (20 mg total) by mouth every morning before breakfast. 30 tablet 11 02/08/2024 02/07/2025 documented as of this encounter Plan of Treatment Upcoming Encounters Date Type Department Care Team (Latest Contact Info) Description 03/20/2024 9:30 AM CDT Comprehensive Visit Department of General Surgery in [address] [phone] Yanna Rdz P.A.-C., P.A. [address] [place] [phone] Discharge Disposition: Home or Self Care 03/20/2024 11:00 AM CDT Hospital Encounter Department of Radiology in [address] [phone] Yanna Rdz P.A.-C., P.A. [address] [place] [phone] documented as of this encounter Procedures Procedure Name Priority Date/Time Associated Diagnosis Comments BI ULTRASOUND BREAST FOCUSED RIGHT RAD - Routine (most inpatients and all outpatients) 2024 3:23 PM CDT Abnormal Mammogram documented in this encounter Results * (ABNORMAL) BI Ultrasound Breast Focused Right (2024 3:23 PM CDT) Anatomical Region Laterality Modality Breast, Breast Imaging RST L OS, Breast Imaging ARZ LOS, Breast Imaging FLA LOS Right Ultrasound Impressions 2024 3:11 PM CDT Suspicious right breast mass. Although overall appearance of the right breast mass is suggestive of a fibroadenoma, given size of 2.5 cm, mass is suspicious. RECOMMENDATION: ??Biopsy ASSESSMENT: ??BI-RADS: 4: Suspicious. Narrative 2024 3:11 PM CDT EXAM: ??BI BREAST DIAGNOSTIC BILATERAL WITH TOMOSYNTHESIS, BI ULTRASOUND BREAST FOCUSED RIGHT INDICATION: ??Abnormal screening mammogram COMPARISON: ??Prior exam(s) were available and reviewed for comparison. DENSITY: ??c. The breast(s) are heterogeneously dense, which may obscure small masses. FINDINGS: ??Diagnostic mammogram of the right breast for possible mass within the slightly lower breast, middle to posterior depth and possible asymmetry versus mass in the slightly upper breast, posterior depth seen on baseline screening mammogram dated 01/19/2024. Within the right breast at approximately the 6:00 position, posterior depth there is a dominant circumscribed, equal density mass measuring 1.8 x 1.4 cm and 2 adjacent similar appearing round masses, each measuring 6 to 7 mm. Masses persists with spot compression. Within the posterior breast along the posterior nipple line there is an oval, circumscribed, equal density mass measuring 8 x 6 mm. Mass persists with spot compression. Diagnostic mammogram of the left breast was completed for possible asymmetry along the posterior nipple line within the middle depth seen on screening mammogram dated 01/19/2024. Abnormality is not reproducible on full field images. Targeted right breast ultrasound completed by radiologist and technologist. At the 6:00 position, 8 cm from the nipple there is a predominantly ovoid, circumscribed, hypoechoic mass with minimal posterior shadowing, no internal vascularity overall measuring 2.5 x 1.2 x 1.7 cm. This corresponds with the mammographic findings described above. At the 12:00 position, 14 cm from the nipple there is a benign-appearing lymph node, corresponding with the mammographic findings described above. Procedure Note Sury Pedroza D.O. - 2024 EXAM: BI BREAST DIAGNOSTIC BILATERAL WITH TOMOSYNTHESIS, BI ULTRASOUNDBREAST FOCUSED RIGHT INDICATION: Abnormal screening mammogram COMPARISON: Prior exam(s) were available and reviewed for comparison. DENSITY: c. The breast(s) are heterogeneously dense, which may obscuresmall masses. FINDINGS: Diagnostic mammogram of the right breast for possible masswithin the slightly lower breast, middle to posterior depth and possibleasymmetry versus mass in the slightly upper breast, posterior depth seenon baseline screening mammogram dated 01/19/2024. Within the right breast at approximately the 6:00 position,posterior depth there is a dominant circumscribed, equal density massmeasuring 1.8 x 1.4 cm and 2 adjacent similar appearing round masses, eachmeasuring 6 to 7 mm. Masses persists with spot compression. Within the posterior breast along the posteriornipple line there is an oval, circumscribed, equal density mass measuring8 x 6 mm. Mass persists with spot compression. Diagnostic mammogram of the left breast was completed for possibleasymmetry along the posterior nipple line within the middle depth seen onscreening mammogram dated 01/19/2024. Abnormality is not reproducible onfull field images. Targeted right breast ultrasound completed by radiologist andtechnologist. At the 6:00 position, 8 cm from the nipple there is apredominantly ovoid, circumscribed, hypoechoic mass with minimal posteriorshadowing, no internal vascularity overall measuring 2.5 x 1.2 x 1.7 cm. This corresponds with the mammographicfindings described above. At the 12:00 position, 14 cm from the nipplethere is a benign-appearing lymph node, corresponding with themammographic findings described above. IMPRESSION: Suspicious right breast mass. Although overall appearance of the rightbreast mass is suggestive of a fibroadenoma, given size of 2.5 cm, mass issuspicious. RECOMMENDATION: Biopsy ASSESSMENT: BI-RADS: 4: Suspicious. Nazario Moran APRN CChristopheNSurekha IMG BI PROCE DURES documented in this encounter Visit Diagnoses Diagnosis Abnormal Mammogram documented in this encounter Care Teams Railroad Brake Repairer Relationship Specialty Start Date End Date Post, Nazario Santos APRN C.N.PChristophe [address] [place] [phone] PCP - General Family Medicine 12/06/23 documented as of this encounter
--- OUTSIDE RECORDS SUMMARY | 2024-03-04 10:55 | XMS_ITS | Encounter Summary ---
Author Organization [facility] Address [address] [place] [id number] Care Team Providers Care Senior Animal Trainer Name Role Phone Post, Nazario Santos APRN, C.N.P. Primary Care Provid er Encounter Details Date Type Department Care Team (Late st Contact Info) Description 02/08/2024 9:20 AM CDT - 02/08/2024 11:59 PM CDT Hospital Encounter Department of Laboratory Medicine in [address] [phone] Laxmi Bowling APRN, C.N.P., D.N.P. [address] [place] [phone] Bloating Abdominal; Pain Epigastric Discharge Disposition: Home or Self Care Social [...] Comprehensive Visit Department of General Surgery in [address] [phone] Yanna Rdz P.A.-C., P.A. [address] [place] [phone] Discharge Disposition: Home or Self Care 03/20/2024 11:00 AM CDT Hospital Encounter Department of Radiology in [address] [phone] Yanna Rdz P.A.-C., P.A. [address] [place] [phone] documented as of this encounter Procedures Procedure Name Priority Date/Time Associated Diagnosis Comments H. PYLORI C UREA BREATH TEST Routine 02/08/2024 9:31 AM CDT Bloating Abdominal Pain Epigastric documented in this encounter Results * Helicobacter pylori Breath Test (02/08/2024 9:31 AM CDT) H. pylori C Urea Breath Test Negative Negative 02/09/2024 12:04 PM CDT [facility] Comment:Result indicates the absence of current Helicobacter pylori infection. Breath (Mouth) 02/08/2024 9: 31 AM CDT 02/09/2024 10:02 AM CDT Narrative [facility] - 02/09/2024 12:04 PM CDT Specimen Information: Specimen ID: [id number] Specimen Type: Breath Specimen Collection Start Date: 02/08/2024 ??9:31 AM Specimen Received Date: 02/09/2024 10:02 AM Specimen ID: [id number] Specimen Type: Breath Specimen Collection Start Date: 02/08/2024 ??9:48 AM Specimen Received Date: 02/09/2024 10:02 AM Laxmi Bowling APRN C.N.PChristophe, Tari LAB MICROBIOLOGY - GENERAL ORDERABLES [facility] [address] [place] [address] [facility] [address] [place] [address] [place] [address] documented in this encounter Visit Diagnoses Diagnosis Bloating Abdominal Pain Epigastric documented in this encounter Care Teams Senior Animal Trainer Relationship Specialty Start Date End Date Post, Nazario Santos APRN, C.NChristophePChristophe [address] [place] [phone] PCP - General Family Medicine 12/06/23 documented as of this encounter
--- OUTSIDE RECORDS SUMMARY | 2024-03-04 10:55 | XMS_ITS | Referral Summary ---
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 Primary Care Provid er Source Comments Patient records contain information from all sites at [facility]. For routine questions regarding patient records, call [phone] during business hours, M-F 8:00 AM - 5:00 PM Central Time. Record requests for emergency care only can be directed to [phone] at any time.[facility] Encounters Date Type Department Care Team Description 02/29/2024 Orders Only Department of Gastroenterology in [address] [phone] Laxmi Bowling APRN, C.N.P., D.N.P. Gastroesophageal Reflux Disease (Primary Dx); Pain Generalized Abdominal 2024 1:37 PM CDT - 2024 11:59 PM CDT Hospital Encounter Department of Radiology in [address] [phone] Dean, Nazario Santos APRN, C.N.P. Abnormal Mammogram Discharge Disposition: Home or Self Care 2024 1:37 PM CDT - 2024 11:59 PM CDT Hospital Encounter Department of Radiology in [address] [phone] Dean, Nazario Santos APRN, C.N.P. Abnormal Mammogram Discharge Disposition: Home or Self Care 02/08/2024 9:20 AM CDT - 02/08/2024 11:59 PM CDT Hospital Encounter Department of Laboratory Medicine in [address] [phone] Laxmi Bowling APRN C.N.P., D.N.P. Bloating Abdominal; Pain Epigastric Discharge Disposition: Home or Self Care 02/08/2024 9:19 AM CDT Hospital Encounter Department of Laboratory Medicine in [address] [phone] Laxmi Bowling APRN, C.N.P., D.N.P. Cholecystectomy Status Post; Pain Generalized Abdominal Discharge Disposition: Home or Self Care 02/08/2024 8:00 AM CDT Comprehensive Visit Department of Gastroenterology in [address] [phone] Laxmi Bowling APRN, C.N.P., D.N.P. Cholecystectomy Status Post (Primary Dx); Gastroesophageal Reflux Disease; Pain Epigastric; Bloating Abdominal; Morbid Obesity Body Mass Index 40.0-44.9 Adult (HCC); Constipation; Pain Generalized Abdominal; Abuse Tobacco Smoking; Counseling Smoking Cessation Discharge Disposition: Home or Self Care 01/19/2024 3:00 PM CDT Ancillary Procedure Department of Radiology in [place] [address] [place] [phone] Post, Nazario Santos APRN, C.N.P. Screening Mammogram Breast Cancer 01/17/2024 8:30 AM CDT Office Visit Department of Family Medicine, [facility], in [place] [address] [place] [phone] Post, Nazario Santos APRN, C.N.P. General Medical Examination Adult (Primary Dx); Screening Lipid; Nicotine Dependence Cigarettes; Counseling Smoking Cessation; Encounter For Screening For Malignant Neoplasm Of Cervix; Menorrhagia; Rhinitis Allergic; Gastroesophageal Reflux Disease Without Esophagitis Discharge Disposition: Home or Self Care 12/10/2023 3:15 PM CDT Ancillary Procedure Department of Gastroenterology 12/10/2023 1:20 PM CDT - 12/10/2023 11:59 PM CDT Hospital Encounter Outpatient Procedure Center in [address] [phone] Nazario Moran APRN, C.N.PJames Dunham M.D. Pain Generalized Abdominal; Abnormal Findings On Diagnostic Imaging Of Other Abdominal Regions Including Retroperitoneum; Screening Colon Cancer Average Risk Discharge Disposition: Home or Self Care 12/10/2023 2:39 PM CDT Anesthesia Event Outpatient Procedure Center in [address] [phone] Laney Alfaro APRN, CRNA Barker, Shelly, M.D. 12/07/2023 Clinical Communication Outpatient Procedure Center in [address] [phone] Chloe Diamond R.N. Colonoscopy (Pre-procedure education call) 12/06/2023 10:30 AM CDT Office Visit Department of Family Medicine, [facility], in [address] [place] [phone] Nazario Moran APRN, C.N.PChristophe Symptom Urinary (Primary Dx); Rash; Pain Generalized Abdominal; Abnormal Findings On Diagnostic Imaging Of Other Abdominal Regions Including Retroperitoneum Discharge Disposition: Home or Self Care 12/04/2023 10:00 AM CDT Office Visit [facility] at [address] [place] [phone] Taylor Beaver APRN C.N.PChristophe Dermatitis (Primary Dx) from Last 3 Months Allergies Active Allergy Reactions Criticality Noted Date Comments Penicillins Other (see comments) Low 09/06/2006 As a baby Medications Medication Sig Dispensed Refills Start Date End Date Status fluticasone propionate (FLONASE) 50 mcg/actuation nasal spray Administer 1 spray into nostril(s). 07/29/2015 Active acetaminophen (TYLENOL) 500 mg tablet Take 1,000 mg by mouth. 05/10/2016 Active omeprazole (PriLOSEC OTC) [address] tabletIndicatio ns:Pain Epigastric,Merari roesophageal Reflux Disease Take 1 tablet (20 mg total) by mouth every morning before breakfast. 30 tablet 11 02/08/2024 02/08/20 25 Active omeprazole (PriLOSEC OTC) [address] tablet Take 20 mg by mouth as needed. 04/18/2023 02/08/20 24 Discontinued(Reo rder) triamcinolone (KENALOG) 0.1 % creamIndication s:Dermatitis Apply 1 Application topically 2 (two) times a day. Apply to affected area for up to 2 weeks. 80 g 12/04/2023 02/08/20 24 Discontinued clobetasoL (TEMOVATE) 0.05 % cream Apply 1 Application topically 2 (two) times a day. Apply to rash. 30 g 12/06/2023 02/08/20 24 Discontinued Active Problems Problem Noted Date Diagnosed Date Gastroesophageal Reflux Disease 02/08/2024 Morbid Obesity Body Mass Index 40.0-44.9 Adult 0 12/06/2023 Abuse Tobacco Smoking 12/06/2023 Cholecystectomy Status Post 10/28/2023 Biliary Acute Pancreatitis Without Necrosis Or I nfection 04/19/2023 Constipation 05/27/2013 Lumbar Disc Disorder With Myelopathy 05/23/2013 Immunizations Name Administration Dates Next Due H1N1 Inj 07/31/2009 Influenza (IM) Preservative Free 07/31/2009,09/17 Influenza TIV (IM) 10/11/2006,06/17/2004 Influenza, Seasonal, Injectable 06/17/2004 Tdap 02/10/2023 influenza vaccine quad (FLUZ ONE) (6 months-35 months) (PF) 07/31/2009,10/11/2006,06/17/2004 influenza vaccine quad (FLUZ ONE/FLUARIX) (6 months and older)(PF) 07/31/2009,10/11/2006,06/17/2004 Social History Tobacco Use Types Packs/Day Years Used Date Smoking Tobacco: Every Day Cigarettes 1 30 Smokeless Tobacco: Never Tobacco Cessation:Counseling Given: Yes Alcohol Use Standard Drinks/Week Comments Yes 0 [...] not to disclose 2022 2:05 PM CDT Last Filed Vital Signs Vital Sign Reading Time Taken Comments Blood Pressure 121/73 02/08/2024 7:49 AM CDT Pulse 95 02/08/2024 7:49 AM CDT Temperature 36.7 ??C (98.1 ??F) 02/08/2024 7:49 AM CD T Respiratory Rate 18 12/10/2023 3:34 PM CDT Oxygen Saturation 99% 02/08/2024 7:49 AM CDT Inhaled Oxygen Concentration - - Weight 119 kg (261 lb 14.5 oz) 02/08/2024 7:49 A M CDT Height 169 cm (5' 6.54) 01/17/2024 8:17 AM CDT Body Mass Index 41.6 01/17/2024 8:17 AM CDT Plan of Treatment Upcoming Encounters Date Type Department Care Team (Latest Contact Info) Description 03/20/2024 9:30 AM CDT Comprehensive Visit Department of General Surgery in [address] [phone] Yanna Rdz P.A.-C., P.A. [address] [place] [phone] Discharge Disposition: Home or Self Care 03/20/2024 11:00 AM CDT Hospital Encounter Department of Radiology in [address] [phone] Yanna Rdz P.A.-C., P.A. [address] [place] [phone] Medical Devices Implanted Type Area [employer] Internship Device Identifier Shelf Expiration Date Model / Serial / Lot Mesh Or Patch Mesh or Patch Midline: Umbilical Procedures Procedure Name Priority Date/Time Associated Diagnosis Comments BI ULTRASOUND BREAST FOCUSED RIGHT RAD - Routine (most inpatients and all outpatients) 2024 3:23 PM CDT Abnormal Mammogram BI BREAST DIAGNOSTIC BILATERAL WITH TOMOSYNTHESIS RAD - Routine (most inpatients and all outpatients) 2024 2:18 PM CDT Abnormal Mammogram CBC WITHOUT DIFFERENTIAL, B Routine 02/08/2024 9:33 AM CDT Cholecystectomy Status Post Pain Generalized Abdominal H. PYLORI C UREA BREATH TEST Routine 02/08/2024 9:31 AM CDT Bloating Abdominal Pain Epigastric COMPREHENSIVE METABOLIC PANEL, S/P Routine 02/08/2024 9:28 AM CDT Cholecystectomy Status Post Pain Generalized Abdominal C-REACTIVE PROTEIN (CRP), S/P Routine 02/08/2024 9:28 AM CDT Cholecystectomy Status Post Pain Generalized Abdominal LIPASE, S/P Routine 02/08/2024 9:28 AM CDT Cholecystectomy Status Post Pain Generalized Abdominal BI BREAST SCREENING BILATERAL WITH TOMOSYNTHESIS RAD - Routine (most inpatients and all outpatients) 01/19/2024 2:48 PM CDT Screening Mammogram Breast Cancer THINPREP W/HPV CO-TEST SCREEN Routine 01/17/2024 9:23 AM CDT Encounter For Screening For Malignant Neoplasm Of Cervix LIPID PANEL, S Routine 01/17/2024 9:23 AM CDT Screening Lipid HPV WITH GENOTYPING, PCR, THINPREP Routine 01/17/2024 9:23 AM CDT GI PROCEDURE NOTE Routine 12/10/2023 3:15 PM CDT Pain Generalized Abdominal Abnormal Findings On Diagnostic Imaging Of Other Abdominal Regions Including Retroperitoneum Screening Colon Cancer Average Risk COLONOSCOPY Routine 12/10/2023 3:15 PM CDT Pain Generalized Abdominal Abnormal Findings On Diagnostic Imaging Of Other Abdominal Regions Including Retroperitoneum Screening Colon Cancer Average Risk GASTROENTEROLOGY IMAGE EXAM Routine 12/10/2023 3:15 PM CDT SURGICAL PATHOLOGY Routine 12/10/2023 3:03 PM CDT AR URINALYSIS AUTO W MICRO Routine 12/06/2023 11:16 AM CDT ALBUMIN, RANDOM, U Routine 12/06/2023 11:16 AM CDT Symptom Urinary Rash Pain Generalized Abdominal Abnormal Findings On Diagnostic Imaging Of Other Abdominal Regions Including Retroperitoneum URINALYSIS WITH MICROSCOPIC IF INDICATED, U Routine 12/06/2023 11:16 AM CDT Symptom Urinary Rash Pain Generalized Abdominal Abnormal Findings On Diagnostic Imaging Of Other Abdominal Regions Including Retroperitoneum BASIC METABOLIC PANEL, S/P Routine 12/06/2023 11:16 AM CDT Symptom Urinary Rash Pain Generalized Abdominal Abnormal Findings On Diagnostic Imaging Of Other Abdominal Regions Including Retroperitoneum C-REACTIVE PROTEIN (CRP), S/P Routine 12/06/2023 11:16 AM CDT Symptom Urinary Rash Pain Generalized Abdominal Abnormal Findings On Diagnostic Imaging Of Other Abdominal Regions Including Retroperitoneum CONNECTIVE TISSUE DISEASE CASCADE, BERNARD, S Routine 12/06/2023 11:16 AM CDT Symptom Urinary Rash Pain Generalized Abdominal Abnormal Findings On Diagnostic Imaging Of Other Abdominal Regions Including Retroperitoneum from Last 3 Months Results * (ABNORMAL) BI Ultrasound Breast Focused [...] Biopsy ASSESSMENT: BI-RADS: 4: Suspicious. Nazario Moran APRN, C.N.P. IMG BI PROCE DURES * (ABNORMAL) BI Breast Diagnostic Bilateral with Tomosynthesis (2024 2:18 PM CDT) Anatomical Region Laterality Modality Breast, Breast Imaging RST L OS, Breast Imaging ARZ LOS, Breast Imaging FLA LOS Bilateral Mammography Impressions 2024 3:11 PM CDT Suspicious right [...] Biopsy ASSESSMENT: BI-RADS: 4: Suspicious. Nazario Moran APRN, C.N.P. IMG BI PROCE DURES * (ABNORMAL) CBC without Differential (02/08/2024 9:33 AM CDT) Hemoglobin 11.4(L) 11.6 - 15.0 g/dL 02/08/2024 9:39 AM CDT [facility] Hematocrit 36.5 35.5 - 44.9 % 02/08/2024 9:39 AM CDT [facility] Erythrocytes 4.18 3.92 - 5.13 x10(12)/L 02/08/2024 9:39 AM CDT [facility] MCV 87.3 78.2 - 97.9 fL 02/08/2024 9:39 AM CDT [facility] RBC Distrib Width 15.6 12.2 - 16.1 % 02/08/2024 9:39 AM CDT [facility] Platelet Count 306 157 - 371 x10(9)/L 02/08/2024 9:39 AM CDT [facility] Leukocytes 9.1 3.4 - 9.6 x10(9)/L 02/08/2024 9:39 AM CDT [facility] Blood (Blood, Venous) 02/08/2024 9:33 AM CDT 02/08/2024 9:33 AM CDT Laxmi Bowling APRN, C.N.P., D.N.P. LAB BLOOD ADD-ON [facility] [address] [place] [address], [facility] in [place] [address] [phone] * Helicobacter pylori Breath Test (02/08/2024 9:31 AM CDT) H. pylori C Urea Breath Test Negative Negative 02/09/2024 12:[address] [facility] Comment:Result indicates the absence of current Helicobacter pylori infection. Breath (Mouth) 02/08/2024 9: 31 AM CDT 02/09/2024 10:02 AM CDT Narrative [facility] - 02/09/2024 12:04 PM CDT Specimen Information: Specimen ID: [id number] Specimen Type: Breath Specimen Collection Start Date: 02/08/2024 ??9:31 AM Specimen Received Date: 02/09/2024 10:02 AM Specimen ID: [id number] Specimen Type: Breath Specimen Collection Start Date: 02/08/2024 ??9:48 AM Specimen Received Date: 02/09/2024 10:02 AM Chu Hu APRNNSurekha, D.N.P. LAB MICROBIOLOGY - GENERAL ORDERABLES [facility] [address] [place] [address] [facility] [address] [place] [address] [place] [address] * (ABNORMAL) CRP (C-Reactive Protein) (02/08/2024 9:28 AM CDT) Only the most recent of2 resultswithin the time period is included. C-Reactive Protein (CRP), P 6.5(H) <5.0 mg/L 02/08/2024 9:59 AM CDT [facility] Blood (Blood, Venous) 02/08/2024 9:28 AM CDT 02/08/2024 9:33 AM CDT Sowmya Hu APRN.N.P., D.N.P. LAB BLOOD ADD-ON [facility] [address], [facility] in [address] [phone] * Lipase (02/08/2024 9:28 AM CDT) Lipase, P 26 13 - 60 U/L 02/08/2024 9: 59 AM CDT [facility] Blood (Blood, Venous) 02/08/2024 9:28 AM CDT 02/08/2024 9:33 AM CDT Sowmya Hu APRN.N.P., D.N.P. LAB BLOOD ADD-ON [facility] [address], [facility] in [address] [phone] * Comprehensive Metabolic Panel (02/08/2024 9:28 AM CDT) Potassium, P 4.1 3.6 - 5.2 mmol/L 02/08/2024 9:59 AM CDT [facility] Sodium, P 140 135 - 145 mmol/L 02/08/2024 9:59 AM CDT [facility] Chloride, P 105 98 - 107 mmol/L 02/08/2024 9:59 AM CDT [facility] Bicarbonate, P 24 22 - 29 mmol/L 02/08/2024 9:59 AM CDT [facility] Anion Gap, P 11 7 - 15 02/08/2024 9:59 AM CDT [facility] BUN (Blood Urea Nitrogen), P 12 6 - 21 mg/dL 02/08/2024 9:59 AM CDT [facility] Creatinine 0.72 0.59 - 1.04 mg/dL 02/08/2024 9:59 AM CDT [facility] Estimated GFR (eGFR) >90 >=60 mL/min/BS A 02/08/2024 9:59 AM CDT [facility] Comment: Estimated GFR calculated using the 2020 CKD_EPI creatinine equation. Calcium, Total, P 8.9 8.6 - 10.0 mg/dL 02/08/2024 9:59 AM CDT [facility] Glucose, P 98 70 - 140 mg/dL 02/08/2024 9:59 AM CDT [facility] Protein, Total, P 6.9 6.3 - 7.9 g/dL 02/08/2024 9:59 AM CDT [facility] Albumin, P 4.1 3.5 - 5.0 g/dL 02/08/2024 9:59 AM CDT [facility] Aspartate Aminotransferase (AST), P 12 8 - 43 U/L 02/08/2024 9:59 AM CDT [facility] Alkaline Phosphatase, P 97 35 - 104 U/L 02/08/2024 9:59 AM CDT [facility] Alanine Aminotransferase (ALT), P 28 7 - 45 U/L 02/08/2024 9:59 AM CDT [facility] Bilirubin, Total, P <0.2 0.0 - 1.2 mg/dL 02/08/2024 9:59 AM CDT [facility] Blood (Blood, Venous) 02/08/2024 9:28 AM CDT 02/08/2024 9:33 AM CDT Laxmi Bowling APRN, C.N.P., D.N.P. LAB BLOOD ADD-ON [facility] [address] [place] [address], [facility] in [place] [address] [place] [address] * (ABNORMAL) BI Breast Screening Bilateral with Tomosynthesis (01/19/2024 2:48 PM CDT) Anatomical Region Laterality Modality Breast, Breast Imaging RST L OS, Breast Imaging ARZ LOS, Breast Imaging FLA LOS Bilateral Mammography Impressions 01/21/2024 9:08 AM CDT Incomplete. ??Need additional imaging evaluation. RECOMMENDATION: ??Additional Imaging ASSESSMENT: ??BI-RADS: 0 - Incomplete: Needs Additional Imaging Evaluation. Narrative 01/21/2024 9:08 AM CDT EXAM: ??BI BREAST SCREENING BILATERAL WITH TOMOSYNTHESIS Current study was evaluated with a Computer Aided Detection (CAD) system. INDICATION: ??Screening mammogram. COMPARISON: ??None, this is a baseline screening exam. DENSITY: ??c. The breast(s) are heterogeneously dense, which may obscure small masses. FINDINGS: ??Possible adjacent/clustered masses versus focal asymmetries within the lower right breast, middle to posterior depth. Possible asymmetry within the right breast along the posterior nipple line, posterior depth seen on MLO view. Possible asymmetry within the left breast along the posterior nipple line seen on MLO view, middle depth. Procedure Note Sury Pedroza D.O. - 01/21/2024 EXAM: BI BREAST SCREENING BILATERAL WITH TOMOSYNTHESIS Current study was evaluated with a Computer Aided Detection (CAD) system. INDICATION: Screening mammogram. COMPARISON: None, this is a baseline screening exam. DENSITY: c. The breast(s) are heterogeneously dense, which may obscuresmall masses. FINDINGS: Possible adjacent/clustered masses versus focal asymmetrieswithin the lower right breast, middle to posterior depth. Possibleasymmetry within the right breast along the posterior nipple line,posterior depth seen on MLO view. Possible asymmetry within the left breast along the posterior nipple line seen onMLO view, middle depth. IMPRESSION: Incomplete. Need additional imaging evaluation. RECOMMENDATION: Additional Imaging ASSESSMENT: BI-RADS: 0 - Incomplete: Needs Additional ImagingEvaluation. Nazario Moran APRN, C.N.P. IMG BI PROCE DURES * (ABNORMAL) Lipid Panel (01/17/2024 9:23 AM CDT) Triglycerides 156(H) mg/dL 01/17/2024 12:29 PM CDT [facility] Comment: ----REFERENCE VALUE---- Normal: <150 mg/dL Borderline High: 150-199 mg/dL High: 200-499 mg/dL Very High: > or =500 mg/dL Cholesterol, Total 187 mg/dL 2023 12:29 PM CDT [facility] Comment: ----REFERENCE VALUE---- Desirable: < 200 mg/dL Borderline High: 200 - 239 mg/dL High: > or = 240 mg/dL Cholesterol, LDL, Calculated 103 mg/dL 01/17/2024 12:29 PM CDT [facility] Comment: ----REFERENCE VALUE---- Desirable: <100 mg/dL Above Desirable: 100-129 mg/dL Borderline High: 130-159 mg/dL High: 160-189 mg/dL Very High: >=190 mg/dL ----ADDITIONAL INFORMATION---- LDL cholesterol calculated using the Overton/NIH equation. Cholesterol, HDL 57 >=50 mg/dL 01/17/20 12:29 PM CDT [facility] Cholesterol, Non-HDL, Calculated 130 mg/dL 01/17/2024 12:29 PM CDT [facility] Comment: ----REFERENCE VALUE---- Desirable: <130 mg/dL Above Desirable: 130-159 mg/dL Borderline High: 160-189 mg/dL High: 190-219 mg/dL Very High: > or =220 mg/dL Fasting (8 HR or more) no 01/17/2024 11:44 AM CDT [facility] Blood (Blood, Venous) 01/17/2024 9:23 AM CDT 01/17/2024 11:44 AM CDT Nazario Moran APRN C.N.P. LAB BLOOD AD D-ON [facility] [address] [place] [address], [facility] in [place] [address] [place] [phone] * (ABNORMAL) ThinPrep w/HPV Co-Test Screen (01/17/2024 9:23 AM CDT) (A) 01/20/2024 4:59 PM CDT ECLR Report electronically signed by Mary Avendano M.D. I verify that I have examined all relevant slides/materials for the specimen(s) and rendered or confirmed the diagnosis. (A) 01/20/2024 4:59 PM CDT ECLR Gross Description Received specimen in a ThinPrep vial.(A) 01/20/2024 4:59 PM CDT ECLR Pap Test Source Cervical/Endocervi paris(A) 01/20/2024 4:59 PM CDT ECLR Interpretation Cervical/Endocervi paris ??(ThinPrep): Satisfactory for Evaluation Epithelial Cell Abnormality Low grade squamous intraepithelial lesion High Risk HPV: ??Negative Negative for High Risk HPV by nucleic acid amplification. The following High Risk HPV types were not detected: 16, 18, 31, 33, 35, 39, 45, 51, 52, 56, 58, 59, 66, and 68. (A) 01/20/2024 4:59 PM CDT ECLR Thin Prep Vial (Cervix/Endocerv ix) 01/17/2024 9:23 AM CDT 01/18/2024 8:13 AM CDT Nazario Moran APRN, C.N.P. LAB PAP PATH DX ORDERABLES [facility] [address] [place] [id number], [facility] ECLR [address] [place] [phone] * HPV with Genotyping, PCR, ThinPrep (01/17/2024 9:23 AM CDT) HPV with Genotyping, ThinPrep, PCR Negative Negative 01/18/2024 12:52 PM CDT ECL[facility] Comment: Negative for high risk HPV by nucleic acid amplification. ??The following high risk HPV types were not detected: 16, 18, 31, 33, 35, 39, 45, 51, 52, 56, 58, 59, 66, and 68 This result does not rule out HPV in the patient, as the sensitivity of the test depends on the timing of the specimen collection and the quality of the specimen. 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 01/17/2024 9:23 AM CDT 01/18/2024 8:13 AM CDT Nazario Moran APRN C.N.P. LAB MICROBIO LOGY - GENERAL ORDERABLES [facility] [address] [place] [id number] ECLR [address] [place] [phone] * GI Procedure Note (12/10/2023 3:15 PM CDT) 12/10/2023 3:15 PM CDT Impressions [facility] - 12/10/2023 3:19 PM CDT Post-op Diagnoses: ? - One 3 mm polyp in the sigmoid colon, removed with a cold snare. ? Complete resection. Partial retrieval. ? - The examination was otherwise normal on direct and retroflexion views. Narrative [facility] - 12/10/2023 3:19 PM CDT [facility] Patient Name: Susan Proctor Procedure Date: 12/10/2023 3:15 PM Date of : 1980 Age: 43 Gender: Female Procedure: ? Colonoscopy Providers: ? James Argueta MD, Nazario Moran (Ordering Provider) Referring Provider: ?Nazario Moran Pre-op Diagnoses: ?Screening for colorectal malignant neoplasm, This is ? the patient's first colonoscopy Recommendation: ? - Discharge patient to home (ambulatory). ? - Resume previous diet today. ? - No aspirin, ibuprofen, naproxen, or other non-steroidal ? anti-inflammatory drugs for 3 days after polyp removal. ? - Await pathology results. ? - Repeat colonoscopy for surveillance based on pathology results. ? - Return to referring physician PRN. Findings: ? The perianal and digital rectal examinations were normal. ? A 3 mm polyp was found in the sigmoid colon. The polyp was sessile. The ? polyp was removed with a cold snare. Resection was complete, but the ? polyp tissue was only partially retrieved. Estimated blood loss was ? minimal. ? The exam was otherwise without abnormality on direct and retroflexion ? views. Medicines: ? Propofol per Anesthesia Estimated Blood Loss: ?Estimated blood loss: none. Estimated blood loss was ? minimal. Complications: ? No immediate complications. Procedure Details: ? The patient was seen, evaluated, and history ? reviewed. Airway and heart and lung exams were ? performed and were satisfactory for planned sedation ? care. ? The risks, benefits and alternatives for the ? procedure and sedation were discussed and informed ? consent was obtained. A procedural pause was ? conducted in the presence of assisting personnel to ? verify the correct patient identity and procedure to ? be performed. Throughout the procedure, the ? patient's blood pressure, pulse, and oxygen ? saturations were monitored continuously. ? The Colonoscope was introduced under direct vision ? through the anus and advanced to the cecum, ? identified by the ileocecal valve. The colonoscopy ? was performed without difficulty. The patient ? tolerated the procedure well. The quality of the ? bowel preparation was evaluated using the BBPS ? ([place] Bowel Preparation Scale) with scores of: ? Right Colon = 2 (minor amount of residual staining, ? small fragments of stool and/or opaque liquid, but ? mucosa seen well), Transverse Colon = 3 (entire ? mucosa seen well with no residual staining, small ? fragments of stool or opaque liquid) and Left Colon ? = 2 (minor amount of residual staining, small ? fragments of stool and/or opaque liquid, but mucosa ? seen well). The total BBPS score equals 7. Sedation: ? Anesthesia was administered by an anesthesia professional. The following ? parameters were monitored: oxygen saturation, heart rate, blood ? pressure, respiratory rate, EKG, adequacy of pulmonary ventilation, and ? response to care. James Argueta MD 12/10/2023 3:18:45 PM This report has been signed electronically. Number of Addenda: 0 Note Initiated On: 12/10/2023 3:15 PM Nazario Moran APRN, C.N.P. GI PROCEDURE ORDERABLES Performing Organization Address [facility] Co de Phone Number [employer] NA * Colonoscopy-Gastroenterology Image Exam (12/10/2023 3:15 PM CDT) 12/10/2023 3:15 PM CDT Narrative IIMS - 12/10/2023 3:30 PM CDT This order has been created and auto-finalized to support the import of images acquired without order. The clinical documentation to support these images can be found on the encounter that produced images. Provider Not In System IMG NON RAD IMAGI NG PROCEDURES Performing Organization Address [facility] de Phone Number [facility]IMS NA * Surgical Pathology (12/10/2023 3:03 PM CDT) 12/14/2023 10:20 AM CDT ECLR Report electronically signed by Yovani Pearce M.D. 12/14/2023 10:20 AM CDT ECLR Specimen Received Sigmoid polyp 11/16 10:20 AM CDT ECLR Gross Description Received labeled sigmoid polyp are four orosco tissues ranging from 0.1-0.7 cm in greatest dimension. The specimen is submitted entirely incassette A1. ??[id number] 12/14/2023 10:20 AM CDT ECLR Interpretation FINAL DIAGNOSIS Colon, sigmoid polyp, biopsy: ??Hyperplasti c polyp. Digital imaging was used in the diagnostic assessment of this case. 12/14/2023 10:20 AM CDT ECLR Polyp (Colon) 12/10/2023 3:0 3 PM CDT James Argueta M.D. LAB SURG PATH ORDERA BLES [facility] [address] [place] [address], [facility] ECLR [address] [place] [phone] * (ABNORMAL) Urinalysis with Microscopic if Indicated (12/06/2023 11:16 AM CDT) Source Urine, Urine, Midstream 12/06/2023 11:58 AM CDT [facility] Clarity Clear Clear 12/06/2023 11:58 AM CDT [facility] Color Yellow 12/06/2023 11:58 AM CDT [facility] Comment: ----REFERENCE VALUE---- Colorless Yellow Rina Blood Moderate(A) Negative 12/06/2023 11:58 AM CDT [facility] Nitrite Negative Negative 12/06/2023 11:58 AM CDT [facility] Leukocyte Esterase Negative Negative 12/06/2023 11:58 AM CDT [facility] Protein Negative mg/dL 12/06/2023 11:58 AM CDT [facility] Comment: ----REFERENCE VALUE---- Negative Trace Glucose Negative Negative mg/dL 12/06/2023 11:58 AM CDT [facility] Ketones, QI(U) Negative Negative mg/dL 12/06/2023 11:58 AM CDT [facility] Bilirubin Negative Negative 12/06/2023 11:58 AM CDT [facility] pH 5.5 5.0 - 8.0 12/06/2023 11:58 AM CDT [facility] Specific [place] 1.020 1.001 - 1.035 12/06/2023 11:58 AM CDT [facility] Urobilinogen 0.2 0.2 - 1.0 mg/dL 12/06/2023 11:58 AM CDT [facility] Urine (Urine, Midstream) 12/06/2023 11:16 AM CDT 12/06/2023 11:58 AM CDT Nazario Moran APRN, C.N.P. LAB URINE OR DERABLES Performing Organization Address [facility] de Phone Number [facility] [address] [place] [address], [facility] ZM[facility] [place] [address] * (ABNORMAL) Microscopic Automated (12/06/2023 11:16 AM CDT) White Blood Cells None Seen /hpf 12/06/2023 7:11 PM CDT [facility] Comment: ----REFERENCE VALUE---- Males: 0-3 Females: 0-10 Unknown: 0-10 Red Blood Cells Occ-2 0 - 2 /hpf 12/06/2023 7:11 PM CDT [facility] Hyaline Casts 1-3 /lpf 12/06/2023 7:11 PM CDT [facility] Squamous Cells Occ-3 /hpf 12/06/2023 7:11 PM CDT [facility] Bacteria Present(A) None Seen 12/06/2023 7:11 PM CDT [facility] Urine 12/06/2023 11:1 6 AM CDT 12/06/2023 11:58 AM CDT Nazario Moran APRN, C.N.P. LAB URINE OR DERABLES Performing Organization Address City/[facility]/ZIP Co de Phone Number [facility] [address] [address], [facility] RDWG [facility] [place] [address] [address] * Connective Tissue Diseases [place] (12/06/2023 11:16 AM CDT) Antinuclear Ab, S 0.4 <=1.0 (Negative ) U 12/07/2023 12:[address] [facility] Comment: ----ADDITIONAL INFORMATION---- Method: Enzyme-linked immunoassay using HEp-2 nuclear extract supplemented with purified antigens. Cyclic Citrullinated Peptide Ab, S <15.6 <20.0 (Negative ) U 12/07/2023 1:[address] [facility] Interpretation SEE COMMENT 1:[address] [facility] Comment: Tests for antibodies to dsDNA and VANESA antigens are not performed automatically unless the YENI result is > or = 3.0 U. ??Studies performed at [facility] indicate that positive YENI results <3.0 U are rarely accompanied by positive second order tests. Blood (Blood, Venous) 12/06/2023 11:16 AM CDT 12/07/2023 7:05 AM CDT Nazario Moran APRN, C.N.P. LAB BLOOD AD D-ON [facility] [address] [place] [address] [facility] [address] [address] * Albumin, Random, Urine (12/06/2023 11:16 AM CDT) Microalbumin <12.0 mg/L 12/06/2023 7:37 PM CDT [facility] Comment:If clinically indica radu, contact the lab for additional testing. Creatinine 97 mg/dL 12/06/2023 7:37 PM CDT [facility] Albumin/Creatinine Ratio <12 <25 mg/g 12/06/2023 7:37 PM CDT [facility] Comment: This ratio may not correspond with the reference range because one or both of the values used to calculate the ratio was above or below the quantification limits. Urine (Urine, Midstream) 12/06/2023 11:16 AM CDT 12/06/2023 11:58 AM CDT Chu Westfall APRNNSurekha LAB URINE OR DERABLES [facility] [address] [place] [address], [facility] [place] [address] [place] [address] * Basic Metabolic Panel (12/06/2023 11:16 AM CDT) Potassium, P 4.2 3.6 - 5.2 mmol/L 12/06/2023 7:32 PM CDT [facility] Sodium, P 139 135 - 145 mmol/L 12/06/2023 7:32 PM CDT [facility] Chloride, P 105 98 - 107 mmol/L 12/06/2023 7:32 PM CDT [facility] Bicarbonate, P 23 22 - 29 mmol/L 12/06/2023 7:32 PM CDT [facility] Anion Gap, P 11 7 - 15 12/06/2023 7:32 PM CDT [facility] BUN (Blood Urea Nitrogen), P 9 6 - 21 mg/dL 12/06/2023 7:32 PM CDT [facility] Creatinine 0.69 0.59 - 1.04 mg/dL 12/06/2023 7:32 PM CDT [facility] Estimated GFR (eGFR) >90 >=60 mL/min/BSA 12/06/2023 7:32 PM CDT [facility] Comment: Estimated GFR calculated using the 2020 CKD_EPI creatinine equation. Calcium, Total, P 8.9 8.6 - 10.0 mg/dL 12/06/2023 7:32 PM CDT [facility] Glucose, P 100 70 - 140 mg/dL 12/06/2023 7:32 PM CDT [facility] Blood (Blood, Venous) 12/06/2023 11:16 AM CDT 12/06/2023 7:08 PM CDT Nazario Santos Post Chu SONINSurekha LAB BLOOD AD D-ON [facility] [address] [place] [address], [facility] R[facility] [place] [address] [place] [address] from Last 3 Months Care Teams Wind Turbine Design Engineer Relationship Specialty Start Date End Date Post, Nazario Santos APRN C.N.P. [address] [place] [address] PCP - General Family Medicine 12/06/23
--- OUTSIDE RECORDS SUMMARY | 2024-03-04 10:55 | XMS_ITS | Clinical Summary ---
Author Organization [facility] Address [address] [place] [address] Care Team Providers Care Frame Hand Name Role Phone Post, Sowmya Ferrari APRN.N.P. Primary Care Provid er Source Comments Patient records contain information from all sites at [facility]. For routine questions regarding patient records, call [phone] during business hours, M-F 8:00 AM - 5:00 PM Central Time. Record requests for emergency care only can be directed to [phone] at any time.[facility] Allergies Active Allergy Reactions Criticality Noted Date [...] mouth every morning before breakfast. 30 tablet 02/08/2024 02/08/20 25 Active omeprazole (PriLOSEC OTC) [...] 05/27/2013 Lumbar Disc Disorder With Myelopathy 05/23/2013 Encounters Date Type Department Care Team Description 02/29/2024 Orders Only Department of Gastroenterology in [address] [phone] Laxmi Bowling APRN, C.N.P., D.N.P. Gastroesophageal Reflux Disease (Primary Dx); Pain Generalized Abdominal 2024 1:37 PM CDT - 2024 11:59 PM CDT Hospital Encounter Department of Radiology in [address] [phone] Dean, Nazario Santos APRN, C.N.P. Abnormal Mammogram Discharge Disposition: Home or Self Care 2024 1:37 PM CDT - 2024 11:59 PM CDT Hospital Encounter Department of Radiology in [address] [phone] Post, Nazario Santos APRN, C.N.P. Abnormal Mammogram Discharge Disposition: Home or Self Care 02/08/2024 9:20 AM CDT - 02/08/2024 11:59 PM CDT Hospital Encounter Department of Laboratory Medicine in [address] [phone] Laxmi Bowling APRN, C.N.P., D.N.P. Bloating Abdominal; Pain Epigastric Discharge Disposition: Home or Self Care 02/08/2024 9:19 AM CDT Hospital Encounter Department of Laboratory Medicine in [address] [phone] Laxmi Bowling APRN C.N.PChristophe, D.N.P. Cholecystectomy Status Post; Pain Generalized Abdominal Discharge Disposition: Home or Self Care 02/08/2024 8:00 AM CDT Comprehensive Visit Department of Gastroenterology in [address] [phone] Laxmi Bowling APRN, C.N.P., D.N.P. Cholecystectomy Status Post (Primary Dx); Gastroesophageal Reflux Disease; Pain Epigastric; Bloating Abdominal; Morbid Obesity Body Mass Index 40.0-44.9 Adult (HCC); Constipation; Pain Generalized Abdominal; Abuse Tobacco Smoking; Counseling Smoking Cessation Discharge Disposition: Home or Self Care 01/19/2024 3:00 PM CDT Ancillary Procedure Department of Radiology in [place] [address] [place] [phone] Post, Nazario Santos APRN, C.N.P. Screening Mammogram Breast Cancer 01/17/2024 8:30 AM CDT Office Visit Department of Family Medicine, [facility], in [place] [address] [place] [phone] Post, Nazario Santos APRN, C.N.P. General Medical Examination Adult (Primary Dx); Screening Lipid; Nicotine Dependence Cigarettes; Counseling Smoking Cessation; Encounter For Screening For Malignant Neoplasm Of Cervix; Menorrhagia; Rhinitis Allergic; Gastroesophageal Reflux Disease Without Esophagitis Discharge Disposition: Home or Self Care 12/10/2023 3:15 PM CDT Ancillary Procedure Department of Gastroenterology 12/10/2023 2:39 PM CDT Anesthesia Event Outpatient Procedure Center in [address] [phone] Laney Alfaro APRN, CRNA Barker, Shelly, M.D. 12/10/2023 1:20 PM CDT - 12/10/2023 11:59 PM CDT Hospital Encounter Outpatient Procedure Center in [address] [phone] Post, Nazario Santos APRN, C.N.PJames Dunham M.D. Pain Generalized Abdominal; Abnormal Findings On Diagnostic Imaging Of Other Abdominal Regions Including Retroperitoneum; Screening Colon Cancer Average Risk Discharge Disposition: Home or Self Care 12/07/2023 Clinical Communication Outpatient Procedure Center in [address] [phone] Chloe Diamond R.N. Colonoscopy (Pre-procedure education call) 12/06/2023 10:30 AM CDT Office Visit Department of Family Medicine, [facility], in [address] [place] [phone] Post, Nazario Santos APRN, C.N.PChristophe Symptom Urinary (Primary Dx); Rash; Pain Generalized Abdominal; Abnormal Findings On Diagnostic Imaging Of Other Abdominal Regions Including Retroperitoneum Discharge Disposition: Home or Self Care 12/04/2023 10:00 AM CDT Office Visit [facility]Note 2] at [address] [place] [address] Taylor Beaver APRN C.N.PChristophe Dermatitis (Primary Dx) from Last 3 Months Immunizations Name Administration Dates Next Due H1N1 Inj 07/31/2009 Influenza (IM) Preservative Free 07/31/2009,09/17 Influenza TIV (IM) 10/11/2006,06/17/2004 Influenza, Seasonal, Injectable 06/17/2004 Tdap 02/10/2023 influenza vaccine quad (FLUZ ONE) (6 months-35 months) (PF) 07/31/2009,10/11/2006,06/17/2004 influenza vaccine quad (FLUZ ONE/FLUARIX) (6 months and older)(PF) 07/31/2009,10/11/2006,06/17/2004 Family History Medical History Relation Name Comments No Known Problems Brother Diabetes Father Barney Skin cancer Father Barney Sleep apnea Father Barney Cancer Maternal Grandfather Stroke Maternal Grandmother Penny Migraines Mother Candie Heart attack Paternal Grandfather Hysterectomy Sister ? cancerous Stomach problem Sister never figure d it out, went gluten free. Relation Name Status Comments Brother Alive Father Barney Alive Maternal Grandfather Maternal Grandmother Penny Mother Candie Alive Paternal Grandfather Sister Alive Social History Tobacco Use Types Packs/Day Years [...] Comprehensive Visit Department of General Surgery in [address] [phone] Yanna Rdz P.A.-C., P.A. [address] [place] [phone] Discharge Disposition: Home or Self Care 03/20/2024 11:00 AM CDT Hospital Encounter Department of Radiology in [address] [phone] Yanna Rdz P.A.-C., P.A. [address] [place] [phone] Health Maintenance Due Date Last Done Comments CT Colonography 1978 Cologuard 1978 FIT 1978 HIV Screening 1978 Hepatitis C Screening 1978 Pneumococcal vaccine (0-64 y ears) (1 of 2 - PCV) 02/26/1984 Hepatitis B Vaccines (1 of 3 - 19+ 3-dose series) 1997 COVID-19 Vaccine (3 - 2022-2 4 season) 2023 01/02/2021, 12/05/2020 Influenza Vaccine (#1) 2024 9, 07/31/2009, 07/31/2009, Additional history exists Tobacco Cessation counseling 02/07/2025 02/08/2024 Mammogram 02/24/2025 2024, 01/19/2024 Fasting Glucose for Diabetes Screening 02/07/2027 02/08/2024, 12/06/2023, 10/28/2023, Additional history exists Cervical Cancer Screening 01/16/2029 01/17/2024, 10/2023 Lipid (Cholesterol) Screening 01/16/2029 01/17/2024 DTaP,Tdap,and Td Vaccines (2 - Td or Tdap) 02/10/2033 02/10/2023 Colonoscopy 12/09/2033 12/10/2023 Colorectal Cancer Screening 12/09/2033 Depression Screening (Annual PHQ-2) Completed 10/28/2023, 10/26/2023 Medical Devices Implanted Type Area Senior Engineering Specialist Device Identifier Shelf Expiration Date Model / [...] SURGICAL PATHOLOGY Routine 12/10/2023 3:03 PM CDT MS URINALYSIS AUTO W MICRO Routine 12/06/2023 11:16 [...] Nazario Moran APRN, C.N.P. IMG BI PROCE DUREL * (ABNORMAL) BI Breast Diagnostic Bilateral with [...] Bowling APRN, C.N.P., D.N.P. LAB BLOOD ADD-ON [email or web address] [address] [place] [address], [facility] [place] [address] [place] [address] * Helicobacter pylori Breath Test (02/08/2024 9:31 AM CDT) H. pylori C Urea Breath Test Negative Negative 02/09/2024 12:04 PM CDT [facility] Comment:Result indicates the absence of current Helicobacter pylori infection. Breath (Mouth) 02/08/2024 9: 31 AM CDT 02/09/2024 10:02 AM CDT Narrative [facility] - 02/09/2024 12:04 PM CDT Specimen Information: Specimen ID: [id number] Specimen Type: Breath Specimen Collection Start Date: 02/08/2024 ??9:31 AM Specimen Received Date: 02/09/2024 10:02 AM Specimen ID: [id number] Specimen Type: Breath Specimen Collection Start Date: 02/08/2024 ??9:48 AM Specimen Received Date: 02/09/2024 10:02 AM Chu Hu APRNN.PChristophe, D.N.P. LAB MICROBIOLOGY - GENERAL ORDERABLES [facility] [address] [place] [address] [facility] [address] [place] [address] [place] [address] * (ABNORMAL) CRP (C-Reactive Protein) (02/08/2024 9:28 AM CDT) Only the most recent of2 resultswithin the time period is included. C-Reactive Protein (CRP), P 6.5(H) <5.0 mg/L 02/08/2024 9:59 AM CDT [facility] Blood (Blood, Venous) 02/08/2024 9:28 AM CDT 02/08/2024 9:33 AM CDT Sowmya Hu APRN.N.P., D.N.P. LAB BLOOD ADD-ON Performing Organization Address City/[facility]/ZIP Co de Phone Number [facility] [address] [place] [address], [facility] in [address] [address] * Lipase (02/08/2024 9:28 AM CDT) Lipase, P 26 13 - 60 U/L 02/08/2024 9: 59 AM CDT [facility] Blood (Blood, Venous) 02/08/2024 9:28 AM CDT 02/08/2024 9:33 AM CDT Laxmi Bowling APRN, C.N.P., D.N.P. LAB BLOOD ADD-ON Performing Organization Address City/[facility] Co de Phone Number [facility] [address] [place] [address], [facility] in [address] [address] * Comprehensive Metabolic Panel (02/08/2024 9:28 AM [...] Bowling APRN, C.N.P., D.N.P. LAB BLOOD ADD-ON [facility] [address] [place] [address], [facility] [place] [address] [place] [address] * (ABNORMAL) BI Breast Screening Bilateral with [...] Nazario Moran APRN, C.N.P. IMG BI PROCE [place] * (ABNORMAL) Lipid Panel (01/17/2024 9:23 AM [...] CDT 01/17/2024 11:44 AM CDT Nazario Moran APRN, C.N.P. LAB BLOOD AD D-ON [facility] [address] [place] [address], [facility] [place] [address] [place] [address] * (ABNORMAL) ThinPrep w/HPV Co-Test Screen (01/17/2024 [...] AM CDT Nazario Moran APRN C.N.P. LAB PAP PATH DX ORDERABLES [facility] [address] [place] [address], [facility] ECLR [address] [place] [phone] * HPV with Genotyping, PCR, ThinPrep (01/17/2024 [...] correlated with patient's history, clinical presentation, and POWER ELECTRONICS ENGINEER cytology report. 01/17/2024 9:23 AM CDT 01/18/2024 8:13 AM CDT Nazario Moran APRN, C.N.P. LAB MICROBIO LOGY - GENERAL ORDERABLES [facility] [address] [place] [address], [facility] ECLR [address] [place] [phone] * GI Procedure Note (12/10/2023 3:15 PM CDT) 12/10/2023 3:15 PM CDT [facility] 12/10/2023 3:19 PM CDT Post-op Diagnoses: ? - One 3 mm polyp in the sigmoid colon, removed with a cold snare. ? Complete resection. Partial retrieval. ? - The examination was otherwise normal on direct and retroflexion views. Narrative [facility] - 12/10/2023 3:19 PM CDT [facility] GI Patient Name: Susan Proctor Procedure Date: [...] preparation was evaluated using the BBPS ? ([place] Bowel Preparation Scale) with scores of: ? [...] C.N.P. GI PROCEDURE ORDERABLES Performing Organization Address [facility] de Phone Number [facility] NA * Colonoscopy-Gastroenterology Image Exam (12/10/2023 3:15 [...] RAD IMAGI NG PROCEDURES Performing Organization Address [facility] de Phone Number [facility] NA * Surgical Pathology (12/10/2023 3:03 PM CDT) 12/14/2023 10:20 AM CDT ECLR Report electronically signed by Yovani Pearce M.D. 12/14/2023 10:20 AM CDT ECLR Specimen Received Sigmoid polyp 11/16 10:20 AM CDT ECLR Gross Description Received labeled sigmoid polyp are four orosco tissues ranging from 0.1-0.7 cm in greatest dimension. The specimen is submitted entirely incvalerie A1. ??[id number] 12/14/2023 10:20 AM CDT ECLR Interpretation FINAL DIAGNOSIS Colon, sigmoid polyp, biopsy: ??Hyperplasti c polyp. Digital imaging was used in the diagnostic assessment of this case. 12/14/2023 10:20 AM CDT ECL[facility] Polyp (Colon) 12/10/2023 3:0 3 PM CDT James Argueta M.D. LAB SURG PATH ORDERA BLES [facility] [address] [place] [address], [facility] ECLR [address] [place] [phone] * (ABNORMAL) Urinalysis with Microscopic if Indicated [...] 8.0 12/06/2023 11:58 AM CDT [facility] Specific [place] 1.020 1.001 - 1.035 12/06/2023 11:58 AM CDT [facility] Urobilinogen 0.2 0.2 - 1.0 mg/dL 12/06/2023 11:58 AM CDT [facility] Urine (Urine, Midstream) 12/06/2023 11:16 AM CDT 12/06/2023 11:58 AM CDT Nazario Moran APRN, C.N.P. LAB URINE OR DERABLES Performing Organization Address City/[facility] Co de Phone Number [facility] [address] [place] [address], [facility] Z[facility] [place] in [place] [address] [place] [address] * (ABNORMAL) Microscopic Automated (12/06/2023 11:16 AM [...] LAB URINE OR DERABLES Performing Organization Address City/[facility]/ZIP Co de Phone Number [facility] [address], [place] [address], [place] [facility] [place] [address] [address] * Connective Tissue Diseases [place] (12/06/2023 11:16 AM CDT) Antinuclear Ab, S 0.4 <=1.0 (Negative ) U 12/07/2023 12:57 PM CDT [facility] Comment: ----ADDITIONAL INFORMATION---- Method: Enzyme-linked immunoassay using HEp-2 nuclear extract supplemented with purified antigens. Cyclic Citrullinated Peptide Ab, S <15.6 <20.0 (Negative ) U 12/07/2023 1:15 PM CDT [facility] Interpretation SEE COMMENT 1:15 PM CDT [facility] Comment: Tests for antibodies to dsDNA and VANESA antigens are not performed automatically unless the YENI result is > or = 3.0 U. ??Studies performed at [facility] indicate that positive YENI results <3.0 U are rarely accompanied by positive second order tests. Blood (Blood, Venous) 12/06/2023 11:16 AM CDT 12/07/2023 7:05 AM CDT Nazario Moran APRN, C.N.P. LAB BLOOD AD D-ON [facility] [address] [place] [address] [facility][note 2] [address] [place] [address] * Albumin, Random, Urine (12/06/2023 11:16 AM [...] Moran APRN, C.N.P. LAB URINE OR DERABLES [facility] [place] [address], [facility] [place] [address] * Basic Metabolic Panel (12/06/2023 11:16 AM [...] AM CDT 12/06/2023 7:08 PM CDT Nazario Moran APRN, C.N.P. LAB BLOOD AD D-ON [facility] [address] [address], [facility] [place] [address] [address] from Last 3 Months Care Teams Frame Hand Relationship Specialty Start Date End Date Post, Nazario Santos APRN, C.N.P. [address] [place] [address] PCP - General Family Medicine 12/06/23
--- OUTSIDE RECORDS SUMMARY | 2024-03-04 10:55 | XMS_ITS | Encounter Summary ---
Author Organization [facility] Address [address] [place] [address] Care Team Providers Care Aircraft Engine Dismantler Name Role Phone Post, Nazario Santos APRN, C.N.P. Primary Care Provid er Reason for Referral * Outpatient (Routine) - Closed Specialty Diagnoses / Procedures Referred By Melisa murry Referred To Contact Diagnoses Abnormal Mammogram Procedures BI Breast Diagnostic Bilateral with Tomosynthesis Post, Nazario Santos APRN, C.N.P. [address] [place] [phone] [facility] Region Referral ID Status Reason Start Date Expiration Date Visits Re quested Visits Authorized [id number] Closed 01/21/2024 01/20/2025 1 1 Reason for Visit * Outpatient (Routine) - Closed Specialty Diagnoses / Procedures Referred By Melisa murry Referred To Contact Diagnoses Abnormal Mammogram Procedures BI Breast Diagnostic Bilateral with Tomosynthesis Post, Nazario Santos APRN, C.N.P. [address] [place] [phone] [facility] Region Referral ID Status Reason Start Date Expiration Date Visits Re quested Visits Authorized [id number] Closed 01/21/2024 01/20/2025 1 1 Encounter Details Date Type Department Care Team (Latest Contact Info) Description 2024 1:37 PM CDT - 2024 11:59 PM CDT Hospital Encounter Department of Radiology in [place], [place] [address] [place] [phone] Post, Nazario Santos APRN, C.N.P. [address] [place] [phone] Abnormal Mammogram Discharge Disposition: Home or Self [...] Comprehensive Visit Department of General Surgery in [address] [phone] Yanna Rdz P.A.-C., P.A. [address] [place] [phone] Discharge Disposition: Home or Self Care 03/20/2024 11:00 AM CDT Hospital Encounter Department of Radiology in [address] [phone] Yanna Rdz P.A.-C., P.A. [address] [place] [phone] documented as of this encounter Procedures Procedure Name Priority Date/Time Associated Diagnosis Comments BI BREAST DIAGNOSTIC BILATERAL WITH TOMOSYNTHESIS RAD - Routine (most inpatients and all outpatients) 2024 2:18 PM CDT Abnormal Mammogram documented in this encounter Results * (ABNORMAL) BI Breast Diagnostic Bilateral with [...] BI-RADS: 4: Suspicious. Nazario Moran APRN, C.N.P. [facility] [place] documented in this encounter Visit Diagnoses Diagnosis Abnormal Mammogram documented in this encounter Care Teams Aircraft Engine Dismantler Relationship Specialty Start Date End Date Post, Nazario Santos APRN, C.N.P. [address] [place] [phone] PCP - General Family Medicine 12/06/23 documented as of this encounter
--- OUTSIDE RECORDS SUMMARY | 2024-03-04 10:55 | XMS_ITS | Encounter Summary ---
Author Organization [facility] Address [address] [place] [address] Care Team Providers Care Tuberculosis Specialist Name Role Phone Post, Nazario Santos APRN, C.N.P. Primary Care Provid er Reason for Referral * Outpatient (Routine) - Pending Review Specialty Diagnoses / Procedures Referred By Melisa murry Referred To Contact Diagnoses Gastroesophageal Reflux Disease Pain Generalized Abdominal Procedures EGD (EsophagealGastroDuodenoscop y) Laxmi Bowling APRN, C.N.P., D.N.P. [address] [place] [phone] [facility] Referral ID Status Reason Start Date Expiration Date V isits Requested Visits Authorized [id number] Pending Review 02/29/2024 02/28/2025 1 1 Encounter Details Date Type Department Care Team (Late st Contact Info) Description 02/29/2024 Orders Only Department of Gastroenterology in [place], [place] [address] [place] [phone] Laxmi Bowling APRN, C.N.P., D.N.P. [address] [place] [phone] Gastroesophageal Reflux Disease (Primary Dx); Pain Generalized Abdominal Social History Tobacco Use Types Packs/Day Years [...] PM CDT documented as of this encounter Plan of Treatment Upcoming Encounters Date Type Department Care Team (Latest Contact Info) Description 03/20/2024 9:30 AM CDT Comprehensive Visit Department of General Surgery in [address] [phone] Yanna Rdz P.A.-C., P.A. [address] [place] [phone] Discharge Disposition: Home or Self Care 03/20/2024 11:00 AM CDT Hospital Encounter Department of Radiology in [address] [phone] Yanna Rdz P.A.-[place] [phone] Scheduled Orders Name Type Priority Associated Diagnoses Orde r Schedule EGD (EsophagealGastroDuo denoscopy) GI Routine Gastroesophageal Reflux Disease Pain Generalized Abdominal Expected: 02/29/2024, Expires: 05/31/2025 documented as of this encounter Visit Diagnoses Diagnosis Gastroesophageal Reflux Disease- Primary Pain Generalized Abdominal documented in this encounter Care Teams Tuberculosis Specialist Relationship Specialty Start Date End Date Post, Nazario Santos APRN, C.N.P. [address] [place] [phone] PCP - General Family Medicine 12/06/23 documented as of this encounter
--- OUTSIDE RECORDS SUMMARY | 2024-03-04 10:55 | XMS_ITS | Encounter Summary ---
Author Organization [facility] Address [address] [place] [address] Care Team Providers Care Laboratory Tech Name Role Phone Post, Nazario Santos APRN, C.N.P. Primary Care Provid er Encounter Details Date Type Department Care Team (Late st Contact Info) Description 02/08/2024 9:19 AM CDT Hospital Encounter Department of Laboratory Medicine in [place], [place] [address] [place] [phone] Laxmi Bowling APRN, C.N.P., D.N.P. [address] [place] [phone] Cholecystectomy Status Post; Pain Generalized Abdominal Discharge Disposition: Home or Self Care Social [...] Comprehensive Visit Department of General Surgery in [address] [place] [phone] Yanna Rdz P.A.-C., P.A. [address] [place] [phone] Discharge Disposition: Home or Self Care 03/20/2024 11:00 AM CDT Hospital Encounter Department of Radiology in [address] [phone] Yanna Rdz P.A.-C., P.A. [address] [place] [phone] documented as of this encounter Procedures Procedure Name Priority Date/Time Associated Diagnosis Comments CBC WITHOUT DIFFERENTIAL, B Routine 02/08/2024 9:33 AM CDT Cholecystectomy Status Post Pain Generalized Abdominal C-REACTIVE PROTEIN (CRP), S/P Routine 02/08/2024 9:28 AM CDT Cholecystectomy Status Post Pain Generalized Abdominal LIPASE, S/P Routine 02/08/2024 9:28 AM CDT Cholecystectomy Status Post Pain Generalized Abdominal COMPREHENSIVE METABOLIC PANEL, S/P Routine 02/08/2024 9:28 AM CDT Cholecystectomy Status Post Pain Generalized Abdominal documented in this encounter Results * (ABNORMAL) CBC without Differential (02/08/2024 9:33 AM CDT) [facility] Hemoglobin 11.4(L) 11.6 - 15.0 g/dL 02/08/2024 [...] Bowling APRN, C.N.P., D.N.P. LAB BLOOD ADD-ON [facility] [address] [place] [address], [facility] [place] [address] [place] [phone] * Comprehensive Metabolic Panel (02/08/2024 9:28 AM [...] Bowling APRN, C.N.P., D.N.P. LAB BLOOD ADD-ON [facility] [address] [place] [address], [facility] [address] [place] [phone] * (ABNORMAL) CRP (C-Reactive Protein) (02/08/2024 9:28 AM CDT) C-Reactive Protein (CRP), P 6.5(H) <5.0 mg/L 02/08/2024 9:59 AM CDT [facility] Blood (Blood, Venous) 02/08/2024 9:28 AM CDT 02/08/2024 9:33 AM CDT Chu Hu APRNNShantal., D.N.P. LAB BLOOD ADD-ON Performing Organization Address City/[facility]/ZIP Co de Phone Number [facility] [address] [place] [address], [facility] [place] [address] [place] [address] * Lipase (02/08/2024 9:28 AM CDT) Lipase, P 26 13 - 60 U/L 02/08/2024 9: 59 AM CDT [facility] Blood (Blood, Venous) 02/08/2024 9:28 AM CDT 02/08/2024 9:33 AM CDT Chu Hu APRNNShantal., D.N.P. LAB BLOOD ADD-ON Performing Organization Address City/[facility] Co de Phone Number [facility] [address] [place] [address], [facility] in [place] [address] [place] [phone] documented in this encounter Visit Diagnoses Diagnosis Cholecystectomy Status Post Pain Generalized Abdominal documented in this encounter Care Teams Laboratory Tech Relationship Specialty Start Date End Date Post, Nazario Santos APRN, C.N.P. [address] [place] [phone] PCP - General Family Medicine 12/06/23 documented as of this encounter
--- OUTSIDE RECORDS SUMMARY | 2024-03-04 10:55 | XMS_ITS ---
Author Organization [facility] Address [address] [place] [address] Care Team Providers Care High School Coach Name Role Phone Unavailable Unavailable Unavailable Surgery Details Not on file Complications Check Surgery Details section. Procedure Estimated Blood Loss Check Surgery Details section. Procedure Findings Check Surgery Details section. Procedure Specimens Taken Check Surgery Details section.
--- OUTSIDE RECORDS SUMMARY | 2024-03-04 10:56 | XMS_ITS | Encounter Summary ---
Author Organization [facility] Address [address] [place] [address] Care Team Providers Care Plant Sciences Professor Name Role Phone Burton Clay M.D. Primary Care Provider [phone] Reason for Visit * Reason Comments Rash Rash on her chest ba ck and upper arms. Rash itches, medellin and feels sensitive. Symptoms started 5 days ago.. Encounter Details Date Type Department Care Team (Late st Contact Info) Description 12/04/2023 10:00 AM CDT Office Visit [facility] at [address] [place] [phone] Taylor Beaver APRN, C.N.P. [address] [place] [phone] Dermatitis (Primary Dx) Social History Tobacco Use Types Packs/Day Years Used Date Smoking Tobacco: Every Day Cigarettes 1 30 Smokeless Tobacco: Never Tobacco Cessation:Ready to Q uit: Yes; Counseling Given: No Alcohol Use Standard Drinks/Week Comments Yes 0 (1 standard drink = 0.6 oz pure alcohol) Havent been drinking since April Overall Financial Resource Strain (CARDIA) Answe r [...] PM CDT documented as of this encounter Last Filed Vital Signs Vital Sign Reading Time Taken Comments Blood Pressure - - Pulse 88 12/04/2023 9:52 AM CDT Temperature 36.2 ??C (97.2 ??F) 12/04/2023 9:52 AM CD T Respiratory Rate - - Oxygen Saturation 98% 12/04/2023 9:52 AM CDT Inhaled Oxygen Concentration - - Weight - - Height - - Body Mass Index - - documented in this encounter Progress Notes * Taylor Beaver, ZACHARIAH, C.N.P. - 12/04/2023 10:00 AM CDT SUBJECTIVE CHIEF COMPLAINT / REASON FOR VISIT Susan Proctor is a 43 y.o. female who presents for evaluation of Rash (Rash on her chest back and upper arms. Rash itches, medellin and feels sensitive. /Symptoms started 5 days ago..). HISTORY OF PRESENT ILLNESS Patient presents today for evaluation of rash for the last 5 days. Developed to her shoulders and upper arms, chest, and upper back. Itches and medellin. Feels sensitive to touch. Does feel like it is spreading slightly. Is starting to itch on her forearms bilaterally. Feels bumpy and rough. [place]ellin more after a warm shower. Tried some Benadryl with no improvement. Uses some calamine to soothe the area. She was outdoors a day or 2 prior to this rash starting. She did rake leaves. Does have seasonal allergies for which she uses Flonase. Used a new face lotion but has not had any rash to her face. No recent fevers. Is otherwise feeling well. OBJECTIVE PHYSICAL EXAM General: Alert, interactive, no acute distress. Skin: On examination of shoulders, upper chest and upper back there is a very mildly erythematous fine papular rash. There has no scaling or blisters. No warmth to touch. ASSESSMENT / PLAN #1 Dermatitis Discussed possibly from sun exposure. Recommended keeping cool and moisturize. Will apply triamcinolone in a thin role player to twice daily for up to 2 weeks. Encouraged to follow-up if worsening. Questions were answered. Patient is in agreement with this plan. I personally spent 20 minutes in care of the patient today including reviewing history, providing education, treatment plan and anticipatory guidance for this visit. documented in this encounter Plan of Treatment Upcoming Encounters Date Type Department Care Team (Latest Contact Info) Description 03/20/2024 9:30 AM CDT Comprehensive Visit Department of General Surgery in [address] [phone] Yanna Rdz P.A.-C., P.A. [address] [place] [phone] Discharge Disposition: Home or Self Care 03/20/2024 11:00 AM CDT Hospital Encounter Department of Radiology in [place], [place] [address] [place] [phone] Yanna Rdz P.A.-C., P.A. [address] [place] [phone] documented as of this encounter Visit Diagnoses Diagnosis Dermatitis- Primary documented in this encounter Care Teams Plant Sciences Professor Relationship Specialty Start Date End Date Burton Clay M.D. [address] [place] [phone] PCP - General Family Medicine 10/28/23 12/05/23 documented as of this encounter
--- OUTSIDE RECORDS SUMMARY | 2024-03-04 10:56 | XMS_ITS | Encounter Summary ---
Author Organization [facility] Address [address] [place] [address] Care Team Providers Care Data Warehouse Consultant Name Role Phone Post, Nazario Santos APRN, C.N.P. Primary Care Provid er Reason for Visit * Outpatient (Routine) - Closed Specialty Diagnoses / Procedures Referred By Melisa murry Referred To Contact Diagnoses Screening Mammogram Breast Cancer Procedures BI Breast Screening Bilateral with Tomosynthesis Post, Nazario Santos APRN, C.N.P. [address] [place] [phone] [facility] Region Referral ID Status Reason Start Date Expiration Date Visits Re quested Visits Authorized [id number] Closed 10/28/2023 10/27/2024 1 1 Encounter Details Date Type Department Care Team (Latest Contact Info) Description 01/19/2024 3:00 PM CDT Ancillary Procedure Department of Radiology in [place] [address] [place] [phone] Post, Nazario Santos APRN, C.N.P. [address] [place] [phone] Screening Mammogram Breast Cancer Social History Tobacco Use Types Packs/Day Years [...] Comprehensive Visit Department of General Surgery in [address] [phone] Yanna Rdz P.A.-Sowmya., P.A. [address] [place] [phone] Discharge Disposition: Home or Self Care 03/20/2024 11:00 AM CDT Hospital Encounter Department of Radiology in [place], [place] [address] [place] [phone] Yanna Rdz P.A.-C., P.A. [address] [place] [phone] documented as of this encounter Procedures Procedure Name Priority Date/Time Associated Diagnosis Comments BI BREAST SCREENING BILATERAL WITH TOMOSYNTHESIS RAD - Routine (most inpatients and all outpatients) 01/19/2024 2:48 PM CDT Screening Mammogram Breast Cancer documented in this encounter Results * (ABNORMAL) BI Breast Screening Bilateral with [...] Moran APRN, C.N.P. IMG BI PROCE DURES documented in this encounter Visit Diagnoses Diagnosis Screening Mammogram Breast Cancer documented in this encounter Care Teams Data Warehouse Consultant Relationship Specialty Start Date End Date Post, Nazario Santos APRN, C.N.P. [address] [place] [phone] PCP - General Family Medicine 12/06/23 documented as of this encounter
--- OUTSIDE RECORDS SUMMARY | 2024-03-04 10:56 | XMS_ITS | Encounter Summary ---
Author Organization [facility] Address [address] [place] [address] Care Team Providers Care Dupligraph Operator Name Role Phone Post, Nazario Santos APRN, C.N.P. Primary Care Provid er Reason for Visit * Reason Comments Gynecologic Exam No concerns * Outpatient (Routine) - Closed Specialty Diagnoses / Procedures Referred By Melisa murry Referred To Contact Family Medicine Dee Herrmann, [facility] [place] [facility] M.S. [address] [place] [phone] [facility] Region Referral ID Status Reason Start Date Expiration Date Visits Re quested Visits Authorized [id number] Closed 11/15/2023 05/16/2025 1 1 Encounter Details Date Type Department Care Team (Late st Contact Info) Description 01/17/2024 8:30 AM CDT Office Visit Department of Family Medicine, [facility], in [place] [address] [place] [phone] Post, Nazario Santos APRN, C.N.P. [address] [place] [phone] General Medical Examination Adult (Primary Dx); Screening Lipid; Nicotine Dependence Cigarettes; Counseling Smoking Cessation; Encounter For Screening For Malignant Neoplasm Of Cervix; Menorrhagia; Rhinitis Allergic; Gastroesophageal Reflux Disease Without Esophagitis Discharge Disposition: Home or Self Care Social History Tobacco Use Types Packs/Day Years Used Date Smoking Tobacco: Every Day Cigarettes 1 30 Smokeless Tobacco: Never Tobacco Cessation:Ready to Q uit: Not Asked; Counseling Given: Not Answered Alcohol Use Standard Drinks/Week Comments Yes 0 [...] Sign Reading Time Taken Comments Blood Pressure 112/73 01/17/2024 8:17 AM CDT Pulse 84 01/17/2024 8:17 AM CDT Temperature 36.5 ??C (97.7 ??F) 01/17/2024 8:17 AM CD T Respiratory Rate - - Oxygen Saturation 96% 01/17/2024 8:17 AM CDT Inhaled Oxygen Concentration - - Weight 120 kg (264 lb 1.8 oz) 01/17/2024 8:17 AM CDT Height 169 cm (5' 6.54) 01/17/2024 8:17 AM CDT Body Mass Index 41.95 01/17/2024 8:17 AM CDT documented in this encounter Patient Instructions * Patient Instructions* Nazario Moran APRN, C.N.P. - 01/17/2024 8:30 AM CDT Chidi Dylan Mi, home sleep apnea test, $189, bring results to his provider for prescription documented in this encounter H&P Notes * Nazario Moran APRN, C.N.P. - 01/17/2024 8:30 AM CDT SUBJECTIVE HISTORY OF PRESENT ILLNESS Susan Proctor is a 43 y.o. female who presents for a yearly physical. Current Concerns: Patient is a pleasant 43-year-old female who presents to clinic today for physical I met patient on October of this year for right upper quadrant abdominal pains. Various lab work is essentially unremarkable. Patient was seen again in November for the continued discomfort and also a rash. Patient completed her colonoscopy short time afterwards. There was 1 polyp that was resected, repeat colonoscopy in 10 years. Things were actually good after the colonoscopy until last week. Bad attack at work. Tummy aches she can deal with, attacks area really what is stressing. Fairly regular but notices some increased symptoms with mild constipation. Feel like digestion changes are a concern. Smoking: will be starting to use patches Allergies : uses flonase Heart burn: monthly?, at times feels like it is coming up. Does use Prilosec as needed, does use itfor a week at a time if needed. Tums as needed. Sleep: does wake up fairly frequently, disrupts him, Menstrual History: regular every 28-30 days, heavy flow with clotting, no dyspareunia, does get night sweats during cycle Health Maintenance: 1. Pap: overdue 2. Mammogram: january 18, 3. Colon CA screening: due in 2033 4. Diabetes screening: Acceptable recent labs 5. Lipid screening: Non found in chart, will update today 6. Vaccinines: Would like to defer vaccines Social History Social History Narrative Not on file CURRENT MEDICATIONS Current Outpatient Medications Medication Sig acetaminophen (TYLENOL) 500 mg tablet Take 1,000 mg by mouth. clobetasoL (TEMOVATE) 0.05 % cream Apply 1 Application topically 2 (two) times a day. Apply to rash. fluticasone propionate (FLONASE) 50 mcg/actuation nasal spray Administer 1 spray into nostril(s). omeprazole (PriLOSEC OTC) [address] tablet Take 20 mg by mouth every morning before breakfast. triamcinolone (KENALOG) 0.1 % cream Apply 1 Application topically 2 (two) times a day. Apply to affected area for up to 2 weeks. GaviLyte-C 240-22.72-6.72 -5.84 gram solution Take 4,000 mL by mouth once. REVIEW OF SYSTEMS Pertinent positives as noted above. The remainder of ROS is negative. OBJECTIVE VITAL SIGNS Vitals: 01/17/24 0817 BP: 112/73 BP Location: Left arm Patient Position: Sitting Cuff Size: Large Pulse: 84 Temp: 36.5 ??C TempSrc: Temporal SpO2: 96% Weight: 120 kg Height: 169 cm Exam conducted with a elect equip maint eng present. HENT Right Ear: Tympanic membrane normal. Left Ear: Tympanic membrane normal. Mouth/Throat: Pharynx: Oropharynx is clear. Eyes Extraocular Movements: Extraocular movements intact. Pupils: Pupils are equal, round, and reactive to light. Cardiovascular Rate and Rhythm: Normal rate and regular rhythm. Heart sounds: Normal heart sounds. Pulmonary Breath sounds: Normal breath sounds. Abdominal General: There is no distension. Palpations: Abdomen is soft. There is no mass. Tenderness: There is abdominal tenderness (In the lower abdominal/pelvic region bilaterally). Thereis no right CVA tenderness, left CVA tenderness, guarding or rebound. Hernia: No hernia is present. There is no hernia in the left inguinal area or right inguinal area. Genitourinary General: Normal vulva. Exam position: Lithotomy position. Vagina: Normal. No vaginal discharge. Cervix: Normal. Uterus: Normal. Adnexa: Right adnexa normal and left adnexa normal. Musculoskeletal General: Normal range of motion. Cervical back: Neck supple. No tenderness. Right lower leg: No edema. Left lower leg: No edema. Lymphadenopathy Cervical: No cervical adenopathy. Lower Body: No right inguinal adenopathy. No left inguinal adenopathy. Skin General: Skin is warm and dry. Neurological Mental Status: She is alert and oriented to person, place, and time. Psychiatric Mood and Affect: Mood normal. Behavior: Behavior normal. ASSESSMENT / PLAN #1 General Medical Examination Adult Satisfactory well adult exam. Reviewed health maintenance items addressed accordingly. Patient elects to defer vaccines for today. #2 Screening Lipid Lipid panel pending #3 Nicotine Dependence Cigarettes #4 Counseling Smoking Cessation She will be starting her nicotine patches here in the near future. If she is any issues with these,she will reach out to consider other options. #5 Encounter For Screening For Malignant Neoplasm Of Cervix #6 Menorrhagia Cytology and HPV pending. She was tender upon deep palpation throughout the lower abdominal and pelvic region however exam was benign and bimanual exam did not increase any tenderness. Since she doeshave some heavier periods with clotting, describe the possibility of other uterine changes, she will let me know if she continues to struggle with more heavy periods for consideration of transabdominal and transpelvic ultrasound. #7 Rhinitis Allergic Reviewed the administration technique of Flonase. #8 Gastroesophageal Reflux Disease Without Esophagitis Reviewed how omeprazole works and the importance of using it consistently instead of 1 day here in 1 day there. When she does use it, she does take about 1 week at a time. Unsure if reflux is causingsome of her abdominal symptoms. She was nontender today in the right upper quadrant. Reviewed the importance of good bowel movements. She will follow up with GI in the near future. Appreciate their assistance! Nazario Moran APRN, C.N.P. documented in this encounter Plan of Treatment Upcoming Encounters Date Type Department Care Team (Latest Contact Info) Description 03/20/2024 9:30 AM CDT Comprehensive Visit Department of General Surgery in [address] [phone] Yanna Rdz P.A.-C., P.A. [address] [place] [phone] Discharge Disposition: Home or Self Care 03/20/2024 11:00 AM CDT Hospital Encounter Department of Radiology in [address] [phone] Yanna Rdz P.A.-C., P.A. [address] [place] [phone] documented as of this encounter Procedures Procedure Name Priority Date/Time Associated Diagnosis Comments LIPID PANEL, S Routine 01/17/2024 9:23 AM CDT Screening Lipid THINPREP W/HPV CO-TEST SCREEN Routine 01/17/2024 9:23 AM CDT Encounter For Screening For Malignant Neoplasm Of Cervix HPV WITH GENOTYPING, PCR, THINPREP Routine 01/17/2024 9:23 AM CDT documented in this encounter Results * HPV with Genotyping, PCR, ThinPrep (01/17/2024 [...] correlated with patient's history, clinical presentation, and DECORATING EQUIPMENT SETTER cytology report. 01/17/2024 9:23 AM CDT 01/18/2024 8:13 AM CDT Nazario Danielle Moran APRN, C.N.P. LAB MICROBIO LOGY - GENERAL ORDERABLES [facility] [address] [place] [address], [facility] [address] [place] [phone] * (ABNORMAL) ThinPrep w/HPV Co-Test Screen (01/17/2024 [...] APRN, C.N.P. LAB PAP PATH DX ORDERABLES [facility] [address] [place] [id number], [facility] [address] [phone] * (ABNORMAL) Lipid Panel (01/17/2024 9:23 AM [...] AM CDT 01/17/2024 11:44 AM CDT Nazario Santos Post Chu SONINSurekha LAB BLOOD AD D-ON [facility] [address] [place] [address], [facility] RDWG [facility] in [place] [address] [place] [phone] documented in this encounter Visit Diagnoses Diagnosis General Medical Examination Adult- Primary Screening Lipid Nicotine Dependence Cigarettes Counseling Smoking Cessation Encounter For Screening For Malignant Neoplasm Of Cervix Menorrhagia Rhinitis Allergic Gastroesophageal Reflux Disease Without Esophagitis documented in this encounter Care Teams Dupligraph Operator Relationship Specialty Start Date End Date Post, Nazario Santos APRN C.N.P. [address] [place] [address] PCP - General Family Medicine 12/06/23 documented as of this encounter
--- OUTSIDE RECORDS SUMMARY | 2024-03-04 10:56 | XMS_ITS | Encounter Summary ---
Author Organization [facility] Address [address] [place] [address] Care Team Providers Care Airborne Electronics Analyst Name Role Phone Post, Sowmya Ferrari APRN.N.P. Primary Care Provid er Encounter Details Date Type Department Care Team (Late st Contact Info) Description 12/03/2023 Orders Only Outpatient Procedure Center in [address] [phone] Carly Gutierrez RChristopheN. [address] [place] [phone] Social History Tobacco Use Types Packs/Day Years [...] Comprehensive Visit Department of General Surgery in [address] [phone] Yanna Rdz P.A.-C., P.A. [address] [place] [phone] Discharge Disposition: Home or Self Care 03/20/2024 11:00 AM CDT Hospital Encounter Department of Radiology in [address] [phone] Yanna Rdz P.A.-C., P.A. [address] [place] [phone] documented as of this encounter Visit Diagnoses Not on filedocumented in this encounter Care Teams Airborne Electronics Analyst Relationship Specialty Start Date End Date Post, Nazario Santos APRN[place] [phone] PCP - General Family Medicine 12/06/23 documented as of this encounter
--- OUTSIDE RECORDS SUMMARY | 2024-03-04 10:56 | XMS_ITS | Encounter Summary ---
Author Organization [facility] Address [address] [place] [address] Care Team Providers Care Makeup Sales Consultant Name Role Phone Post, Nazario Santos APRN, C.N.P. Primary Care Provid er Encounter Details Date Type Department Care Team (Late st Contact Info) Description 12/10/2023 2:39 PM CDT Anesthesia Event Outpatient Procedure Center in [address] [phone] Laney Alfaro APRN, [facility]TH[facility] [address] [place] [phone] Dana Mina M.D. [address] [place] [phone] Anesthesia Record Procedure Summary Procedure Name Responsible Anesthesiologist Anesthesia Start Time Anesthesia Stop Time COLONOSCOPY Laney Alfaro APRN, CRNA 12/10/23 1439 12/10/23 1518 Events Date Time Event Comment 12/10/2023 1439 An Start Machine/Equipme nt Checked Infection Precautions Followed Procedure/Site Verified NPO Status Verified Supine Standard ASA Monitors Applied 1442 Turnover to Proceduralist 1443 Proc Start 1513 Proc Fin 1516 Turnover to ANE Staff 1518 An End I completed my handoff to the receiving staff during which we 1. Identified the patient 2. Identified the responsible provider 3. Reviewed the pertinent medical history 4. Discussed the surgical course 5. Reviewed intra-op anesthesia management and issues during anesthesia 6. Set expectations for post-procedure period 7. Allowed opportunity for questions and acknowledgement of understanding. 1520 an stop data Meds Name Total propofol 10 mg/mL injection 180 mg propofol 10 mg/mL infusion 580.65 mg lidocaine 2% (mg) injection 80 mg Lactated Ringer's 500 mL * Agents No agents on file. * Blood No blood administrations on file. Lines, Drains, and Airways Type Details Placement Removal Peripheral IV Placement Date: 11/15 02/06; Placement Time: 143; Catheter Size: 20 G; Orientation: Left; Location: Hand; Site Prep: Chlorhexidine (Preferred); Inserted by: Thierno KO; Insertion Attempts: 1; Removal Date: 12/10/23; Removal Time: 1538; Removal Reason: Patient discharged 12/10/23 1430 by Carlos A Iqbal R.N. 12/10/23 1539 by Carlos A Iqbal R.Obdulia. documented in this encounter Social History Tobacco Use Types Packs/Day Years [...] PM CDT documented as of this encounter OR Notes * Anesthesia Postprocedure Evaluation - Laney Alfaro APRN, CRNA - 12/10/2023 3:20 PM CDT Patient: Susan Proctor Procedure Summary Date: 12/10/23 Room / Location: Outpatient Procedure Center in [place], [place] Anesthesia Start: 1439 Anesthesia Stop: 1518 Procedure: COLONOSCOPY Diagnosis: Pain Generalized Abdominal Abnormal Findings On Diagnostic Imaging Of Other Abdominal Regions Including Retroperitoneum Screening Colon Cancer Average Risk Scheduled Providers: Chaitanya Ott APRN, CRNA, IGNACIA; James Argueta M.D. Responsible Provider: Laney Alfaro APRN, CRNA Anesthesia Type: MAC ASA Status: 3 Anesthesia Type: MAC Last vitals Vitals Value Taken Time BP 84/49 12/10/23 1518 Temp 36.2 ??C 12/10/23 1518 Pulse 78 12/10/23 1520 Resp 16 12/10/23 1518 SpO2 100 % 12/10/23 1520 Vitals shown include unfiled device data. Please reference Vitals flowsheet for most recent vital signs. Anesthesia Post Evaluation Patient Disposition: dismissal Cardiovascular status: hemodynamics (HR & BP) acceptable Respiratory status: patent airway with spontaneous effort Temperature: normothermic Oxygen requirements: room air Level of consciousness: awake Pain score: pain adequately controlled and/or at baseline Post Op nausea/vomiting: none Hydration status: euvolemic * Anesthesia Preprocedure Evaluation - Chaitanya Ott APRN, CRNA, DNAP - 12/10/2023 2:33 PM CDT Preprocedure Anesthesia & H&P Assessment Procedure Summary Date/Time: 12/10/23 1040 Scheduled providers: James Argueta M.D.; Chaitanya Ott APRN, CRNA, DNAP Procedure: COLONOSCOPY Diagnosis: Pain Generalized Abdominal [R10.84] Abnormal Findings On Diagnostic Imaging Of Other Abdominal Regions Including Retroperitoneum [R93.5] Screening Colon Cancer Average Risk [Z12.11] Location: Outpatient Procedure Center in [place], [place] Pertinent components of the patient's history including current problem list, medical history, surgical history, family history, social history, medications and allergies were reviewed. Present illness and pre-op diagnosis were confirmed. The planned surgery / procedure was verified with the patient / legal guardian. The patient's general health condition remains unchanged RELEVANT COMORBID CONDITIONS Other (+) Abuse Tobacco Smoking (+) Morbid Obesity Body Mass Index 40.0-44.9 Adult (HCC) OBJECTIVE PHYSICAL EXAMINATION Airway (HEENT) Mallampati: III TM Distance: >3 FB Neck ROM: Full Mouth Opening: >3 cm Cardiovascular Rhythm: Regular Rate: Normal Cardiovascular Assessment: cardiovascular normal Functional Capacity: >4 METS Pulmonary Pulmonary Assessment: Non labored General / Constitutional Constitutional Assessment: Obese General State of Health:: calm Neurological Normal Dental Normal ASSESSMENT / PLAN ANESTHESIA PLAN ASA: 3 Anesthesia Plan: MAC Patient seen and allergies reviewed, anesthesia plan and risks discussed directly with patient /legal guardian or through an bake room worker. Risks/Benefits/Alternatives of Blood transfusion discussed with patient / legal guardian, includingan opportunity to ask questions and/or decline some or all transfusion therapies. The patient / legal guardian consented to the use of all blood products, as deemed medically necessary Approval to Proceed: approved for anesthesia documented in this encounter Plan of Treatment Upcoming Encounters Date Type Department Care Team (Latest Contact Info) Description 03/20/2024 9:30 AM CDT Comprehensive Visit Department of General Surgery in [address] [place] [phone] Yanna Rdz P.A.-C., P.A. [address] [place] [phone] Discharge Disposition: Home or Self Care 03/20/2024 11:00 AM CDT Hospital Encounter Department of Radiology in [address] [phone] Yanna Rdz P.A.-C., P.A. [address] [place] [phone] documented as of this encounter Visit Diagnoses Not on filedocumented in this encounter Administered Medications Inactive Administered Medications - up to 3 most recent administrations Medication Order MAR Action Action Date Dose Rate Site Lactated Ringer's 20 mL/hr, intravenous, Continuous, Starting on Wed12/10/23 at 1500, Pre-Op Rate/Dose Verify 12/10/2023 2:39 PM CDT 20 mL/hr New Bag 12/10/2023 2:31 PM CDT 20 mL/hr 20 mL/hr lidocaine (PF) (cardiac) injection intravenous, As needed, Starting on Wed12/10/23 at 1440, Anesthesia Intra-op Given 12/10/2023 2:40 PM CDT 80 mg propofol 10 mg/mL infusion (DIPRIVAN) intravenous, Continuous Infusion: Per Instructions PRN, Starting on Wed12/10/23 at 1440, Anesthesia Intra-op Rate/Dose Change 12/10/2023 3:06 PM CDT 100 mcg/kg/min 71.1 mL/hr Rate/Dose Change 12/10/2023 2:59 PM CDT 75 mcg/kg/min 53.3 25 mL/hr Rate/Dose Change 12/10/2023 2:52 PM CDT 125 mcg/kg/min 88. 875 mL/hr propofoL injection (DIPRIVAN) intravenous, As needed, Starting on Wed12/10/23 at 1440, Anesthesia Intra-op Given 12/10/2023 3:07 PM CDT 30 mg Given 12/10/2023 3:06 PM CDT 20 mg Given 12/10/2023 2:56 PM CDT 30 mg documented in this encounter Care Teams Makeup Sales Consultant Relationship Specialty Start Date End Date Post, Nazario Santos APRN, C.N.P. [address] [place] [phone] PCP - General Family Medicine 12/06/23 documented as of this encounter
--- OUTSIDE RECORDS SUMMARY | 2024-03-04 10:56 | XMS_ITS | Clinical Summary ---
Author Organization [employer] [facility] Address [place], [place] [address] Care Team Providers Care Stem Shaper Name Role Phone Chilango Goss[place] Primary Care Provider Unavail able Allergies Active Allergy Reactions Criticality Noted Date Comments Penicillins 09/06/2006 Medications Medication Sig Dispensed Refills Start Date End Date Status fluticasone (50 mcg per actuation) nasal solution (FLONASE) Inhale 1 [place] into both nostrils once daily. 1 Bottle 0 07/29/2015 Active omeprazole (PriLOSEC OTC) 20 mg tabletIndications:h eartburn Take 20 mg by mouth once daily if needed for GI Upset. Active aspirin-acetaminoph en-caffeine (Excedrin Migraine) 250-250-65 mg Take 2 Tablets by mouth every 6 hours if needed for Headache. Max acetaminophen dose: 4000mg in 24 hrs. Active oxyCODONE (ROXICODONE) 5 mg immediate release tabletIndications:G all stone pancreatitis Take 1 Tablet (5 mg) by mouth every 6 hours if needed for Pain. 7 Tablet 04/21/2023 Active sennosides-docusate (SENOKOT S) (8.6-50 mg) tabletIndications:G all stone pancreatitis Take 1 Tablet by mouth once daily if needed for Constipation. 20 Tablet 04/21/2023 Active nicotine 21 mg/24 hr (NICODERM; HABITROL) 21 mg/24 hr patchIndications:Ni cotine abuse Apply 1 Patch on dry, clean, hairless skin once daily. 14 Patch 04/22/2023 Active sennosides (SENNA) 8.6 mg tabletIndications:C onstipation, unspecified constipation type Take 1-2 Tablets (8.6-17.2 mg) by mouth 2 times daily if needed for Constipation. 10 Tablet 04/21/2023 Active polyethylene glycoL (MIRALAX) 17 gram/scoop powderIndications:C onstipation, unspecified constipation type Take 1 scoop (17 g) by mouth or nasogastric tube once daily if needed for Constipation. 119 g 04/21/2023 Active acetaminophen (TYLENOL) 325 mg tabletIndications:G all stone pancreatitis Take 2-3 Tablets (650-975 mg) by mouth every 6 hours if needed for Pain or Headache. Max acetaminophen dose: 2000mg in 24 hrs. 0 04/21/2023 Active nicotine 14 mg/24 hr (NICODERM; HABITROL) 14 mg/24 hr patchIndications:To bacco dependence Apply 1 Patch on dry, clean, hairless skin once daily. 14 Patch 3 04/26/2023 Active nicotine 7 mg/24 hr (NICODERM; HABITROL) 7 mg/24 hr patchIndications:To bacco dependence Apply 1 Patch on dry, clean, hairless skin once daily. 14 Patch 3 04/26/2023 Active Active Problems Problem Noted Date Diagnosed Date Gall stone pancreatitis 04/19/2023 S/P lumbar microdiscectomy, foraminotomy, hemila minectomy 05/27/2013 Overview: RIGHT L4-5 HEMILAMINECTOMY, MICRODISCECTOMY , and Foraminotomy Constipation 05/27/2013 BMI 34.0-34.9,adult 05/25/2013 Lumbar disc herniation with myelopathy 3 Allergic rhinitis, cause unspecified 09/06/2006 Resolved Problems Problem Noted Date Diagnosed Date Resolved Date Acute cholecystitis 04/19/2023 04/19/20 23 Postural Headache associated with nausea, vomiting, photophobia 05/27/2013 02/11/2016 Tobacco abuse 09/17/2011 02/11/2016 Pilonidal cyst without mention of abscess 09/06/2006 05/27/2013 Other and unspecified ovarian cyst 09/06/2006 05/27/2013 Immunizations Name Administration Dates Next Due Influenza A (H1N1), Inactivated (Age >=3 Years) 07/31/2009 Influenza, IIV3 (Age 6-35 mos) 07/31/2009,2006 Influenza, IIV3 (Age >=3 years) 10/11/2006,06/17 Family History Medical History Relation Name Comments Diabetes Father Good Health Father Cancer Maternal Grandfather lung Good Health Mother Heart Disease Paternal Grandfather Relation Name Status Comments Father Alive Maternal Grandfather Mother Alive Paternal Grandfather Social History Tobacco Use Types Packs/Day Years Used Date Smoking Tobacco: Former Cigarettes 1 13 Smokeless Tobacco: Never Tobacco Cessation:Counseling Given: Yes Comments:ATQ Alcohol Use Standard Drinks/Week Comments Yes 0 (1 standard drink = 0.6 oz pur e alcohol) 2-3 times a month Social Connections Answer Date Recorded Frequency of Communication with Friends and Fami ly Not on file 04/14/2022 Sex and Gender Information Value Date Recorded Sex Assigned at Not on file Gender Identity Not on file Sexual Orientation Not on file Obstetrics History Last Filed Vital Signs Vital Sign Reading Time Taken Comments Blood Pressure 118/70 06/24/2023 2:03 PM ENTERTAINMENT DIRECTOR Pulse 62 05/06/2023 11:18 AM CDT Temperature 36.4 ??C (97.6 ??F) 05/06/2023 11:18 AM C DT Respiratory Rate 17 04/21/2023 7:55 AM CDT Oxygen Saturation 96% 05/06/2023 11:18 AM CDT Inhaled Oxygen Concentration - - Weight 121.1 kg (267 lb) 06/24/2023 2:03 PM ENTERTAINMENT DIRECTOR Height 166.4 cm (5' 5.51) 06/24/2023 2:03 PM CS T Body Mass Index 43.74 06/24/2023 2:03 PM ENTERTAINMENT DIRECTOR Plan of Treatment Health Maintenance Due Date Last Done Comments Tdap 1989 HIV for age 15-65 1993 Hepatitis C screening for age 18-79 02/26/1996 Tetanus booster 1998 Pap test for age 21-65 06/27/2007 06/27/2004 Depression screening for age 12+ 02/10/2017 02/11/2016 Colonoscopy through age 75 2023 Lipids for age 45-75 2023 Mammogram for age 45-75 2023 COVID-19 vaccine series ( season) 2023 01/02/2021, 12/05/2020 Influenza for age 9-49 04/16/2024 9, 10/11/2006, 06/17/2004 BMI (ht and wt on same day) for age 18+ 06/24/2024 06/24/2023, 02/24/2018, 01/26/2017, Additional history exists Pneumococcal series for age 6-64 Aged Out No longer eligible based on patient's age to complete this topic Procedures Procedure Name Priority Date/Time Associated Diagnosis Comments GYNECOLOGICAL PANEL Timed 06/27/2004 1 2:00 PM ENTERTAINMENT DIRECTOR from Last 3 Months or Most Recently Relevant to Health Maintenance Results * GYNECOLOGICAL PANEL (06/27/2004 12:00 PM ENTERTAINMENT DIRECTOR) CYTOLOGY ??CYTOPATHOLOGY REPORT ??[facility] [address] [place] [address] ? Status: Final Report ?[id number] ?? CLINICAL INFORMATION ?Reason for Visit ?: Routine ?LMP ? : 04/10/04 ?Previous PAP Test ? : Yes ?Previous PAP Date ? : 06/08/03 ?Previous PAP Dx ? : NEGATIVE ?Previous Colposcopy/Bx: Not specified ?Hormone Usage ? : Not given ?Additional Data ? : 11 WEEKS ?? SPECIMEN SOURCE ?: Cervical/vaginal smear, screening ?? SPECIMEN ADEQUACY ?: Satisfactory for evaluation No endocervical ?component seen in a patient. ?? * ?? INTERPRETATION/RES ULT: ?Negative for intraepithelial lesion or malignancy. ?Organisms ?Fungal organisms morphologically consistent with Kayla species ?? * ?? Cytology 1st Screener : ??smh ?? Signed by: ? smh ?? Interinstitutiona l comparison of correlations between cervicovaginal ?? smears and biopsies demonstrate an overall false-negative rate of 8% for ?? Pap smears. ??Consideration should be given to performing a biopsy on any ?? suspicious lesion regardless of the Pap test result. ?? COLLECTED: 06/27/04 ?? ACCESSIONED: 06/30/04 ?? SIGNED: 07/02/04 [facility] 06/27/2004 12:0 0 PM ENTERTAINMENT DIRECTOR 06/30/2004 12:58 PM ENTERTAINMENT DIRECTOR Eusebio Bermeo MD PATHOLOGY/CYTOLOG Y [facility] INTERNAL ZIP [address] [address] from Last 3 Months or Most Recently Relevant to Health Maintenance Advance Directives * Full Code (Latest Code Status on File) Date Activated Date Inactivated Comments 04/18/2023 10:16 PM 04/21/2023 2:37 PM Question Answer Comments Code Status Discussion: Reviewed Preferences * Full Code Date Activated Date Inactivated Comments 05/27/2013 4:54 PM 05/29/2013 3:34 PM * Full Code Date Activated Date Inactivated Comments 05/24/2013 12:48 AM 05/25/2013 5:49 PM Care Teams Stem Shaper Relationship Specialty Start Date End Date Juwan Goss PCP - General 04/19/23
--- OUTSIDE RECORDS SUMMARY | 2024-03-04 10:56 | XMS_ITS | Encounter Summary ---
Author Organization [facility] Address [address] [place] [id number] Care Team Providers Care Wreath Machine Operator Name Role Phone Post, Nazario Santos APRN C.N.P. Primary Care Provid er Encounter Details Date Type Department Care Team (Latest Contact Info) Description 12/10/2023 3:15 PM CDT Ancillary Procedure Department of Gastroenterology Social History Tobacco Use Types Packs/Day Years [...] Comprehensive Visit Department of General Surgery in [address] [phone] Yanna Rdz P.A.-C., P.A. [address] [place] [phone] Discharge Disposition: Home or Self Care 03/20/2024 11:00 AM CDT Hospital Encounter Department of Radiology in [address] [phone] Yanna Rdz P.A.-C., P.A. [address] [place] [phone] documented as of this encounter Procedures Procedure Name Priority Date/Time Associated Diagnosis Comments GASTROENTEROLOGY IMAGE EXAM Routine 12/10/2023 3:15 PM CDT documented in this encounter Results * Colonoscopy-Gastroenterology Image Exam (12/10/2023 3:15 PM CDT) 12/10/2023 3:15 PM CDT Narrative IIM[facility] - 12/10/2023 3:30 PM CDT This order has been created and auto-finalized to support the import of images acquired without order. The clinical documentation to support these images can be found on the encounter that produced images. Provider Not In System IMG NON RAD IMAGI NG PROCEDURES [facility]IM[facility] NA documented in this encounter Visit Diagnoses Not on filedocumented in this encounter Care Teams Wreath Machine Operator Relationship Specialty Start Date End Date Post, Nazario Santos APRN, C.N.P. [address] [place] [phone] PCP - General Family Medicine 12/06/23 documented as of this encounter
--- OUTSIDE RECORDS SUMMARY | 2024-03-04 10:56 | XMS_ITS | Encounter Summary ---
Author Organization [facility] Address [address] [place] [address] Care Team Providers Care Pit Manager Name Role Phone Post, Nazario Santos APRN, C.N.P. Primary Care Provid er Reason for Referral * Outpatient (Routine) - Authorized Specialty Diagnoses / Procedures Referred By Contact Referred To Contact Gastroenterology and Hepatology Diagnoses Cholecystectomy Status Post Gastroesophageal Reflux Disease Pain Epigastric Dash, Laxmi Dorantes APRN, C.N.P., D.N.P. [address] [place] [phone] [facility] Region Referral ID Status Reason Start Date Expiration Date V isits Requested Visits Authorized [id number] Authorized 02/08/2024 08/09/2025 1 1 Reason for Visit * Reason Comments Consult Post Cholecystectomy Abdominal Pain * Outpatient (Routine) - Closed Specialty Diagnoses / Procedures Referred By Contact Referred To Contact Gastroenterology and Hepatology Diagnoses Cholecystectomy Status Post Pain Generalized Abdominal Abnormal Findings On Diagnostic Imaging Of Other Abdominal Regions Including Retroperitoneum Post, Nazario Santos APRN, C.N.P. [address] [place] [address] [facility] Region Referral ID Status Reason Start Date Expiration Date V isits Requested Visits Authorized [id number] Closed Specialty Services Required 12/17/2023 06/17/2025 1 1 Encounter Details Date Type Department Care Team (Latest Contact Info) Description 02/08/2024 8:00 AM CDT Comprehensive Visit Department of Gastroenterology in [place], [place] [address] [place] [address] Laxmi Bowling APRN, C.N.P., D.N.P. [address] [place] [address] Cholecystectomy Status Post (Primary Dx); Gastroesophageal Reflux Disease; Pain Epigastric; Bloating Abdominal; Morbid Obesity Body Mass Index 40.0-44.9 Adult (HCC); Constipation; Pain Generalized Abdominal; Abuse Tobacco Smoking; Counseling Smoking Cessation Discharge Disposition: Home or Self Care Social [...] 02/08/2024 7:49 AM CD T Respiratory Rate - - Oxygen Saturation 99% 02/08/2024 7:49 AM CDT Inhaled Oxygen Concentration - - Weight 119 kg (261 lb 14.5 oz) 02/08/2024 7:49 A M CDT Height - - Body Mass Index 41.6 01/17/2024 8:17 AM CDT documented in this encounter Patient Instructions * Patient Instructions* Laxmi Bowling, ZACHARIAH, C.N.P., D.N.P. - 02/08/2024 8:00 AM CDT Images from the original note were not included. Lifestyle changes Review the following lifestyle changes that are known to help improve GERD symptoms. Select those you want to do to improve the quality of your life. Eat smaller meals more often. Do not eat large meals or overeat, especially before exercising. Stop eating two to four hours before going to bed. Eat slowly and chew food well. Stand or sit upright for at least 30 minutes after eating. Raise the head of your bed 4 to 6 inches. To do this, put blocks or books under the legs at the head of your bed. See Figure 2. Or place a wedge under the mattress. Do not sleep on several pillows asthis can increase pressure on your stomach and make GERD worse. When you go to bed, start by lying on your left side to help make it less likely that you will havereflux. If you smoke, stop. Do not be around tobacco smoke. Lose weight if you are overweight. Excess weight around your waist causes more pressure on the stomach. Maintain a healthy weight. Limit how much alcohol you drink. Do not wear tight-fitting clothes. Limit or stop eating foods that bring on your GERD symptoms or make your symptoms worse. Some foodsthat can cause or worsen GERD symptoms are listed below. You do not need to limit or stop all of the foods listed, only those that bring on or worsen your GERD symptoms. Fatty foods, including cream sauces, butter, margarine, shortening Fatty meat including high-fat hamburgers, muir, sausage and ribs Chocolate, especially high-fat milk chocolate Spearmint, peppermint Tomatoes and tomato-based products Treasure fruit and juice Caffeine Carbonated drinks, especially soda pop with caffeine Fried foods such as Nepalese fries and onion rings High-fat dairy products including whole milk Peanut butter and high-fat nuts Hot sauces and peppers Garlic Onion Apples Cucumbers and pickles Green peppers Spicy food * Attachments The following attachments cannot be sent through Care Everywhere. * Gastroesophageal reflux disease (GERD) ([place]) * Omeprazole (By mouth) ([place]) documented in this encounter Consult Notes * Laxmi Bowling APRN, C.N.P., D.N.P. - 02/08/2024 8:00 AM CDT SUBJECTIVE REFERRING PROVIDER: Nazario Moran APRN, C.N.P. CHIEF COMPLAINT / REASON FOR CONSULT Status post cholecystectomy, generalized abdominal pain, abnormal imaging HISTORY OF PRESENT ILLNESS Susan Proctor is a pleasant 43 y.o. female who referred with status post cholecystectomy, generalized abdominal pain, abnormal imaging Very pleasant 43 y.o. female with PMH of gallbladder disorder status post cholecystectomy, pancreatitis, constipation, BMI 40 to 44.9, tobacco abuse, among others being seen for status post cholecystectomy with generalized abdominal pain, abnormal imaging. Patient does describe frequent episodes of epigastric discomfort, burping, gas and bloating. Symptoms can last 1 to 2 minutes and then spontaneous resolve. She tried omeprazole for over a month and feels this may did help, but then she discontinued this and started [id number] Tums as needed. She also describes some right upper quadrant ???attacks?? that can be severe in nature. These occur 1 to 2 times a month. These cause her to become sweaty, shaky, bloated, nauseated, and tired. At times, with these attacks, she describes themalmost similar to crampy labor pains and can bring her to her knees. Denies any vomiting. Denies any weight loss. Bowel habits are regular. Patient's current medication list, surgical history, allergy list, social history and family history were reviewed. PROBLEM LIST Patient Active Problem List Diagnosis Cholecystectomy Status Post Constipation Biliary Acute Pancreatitis Without Necrosis Or Infection (HCC) Lumbar Disc Disorder With Myelopathy Morbid Obesity Body Mass Index 40.0-44.9 Adult (HCC) Abuse Tobacco Smoking CURRENT MEDICATIONS Current Outpatient Medications Medication Sig Dispense Refill acetaminophen (TYLENOL) 500 mg tablet Take 1,000 mg by mouth. clobetasoL (TEMOVATE) 0.05 % cream Apply 1 Application topically 2 (two) times a day. Apply to rash. 30 g 0 fluticasone propionate (FLONASE) 50 mcg/actuation nasal spray Administer 1 spray into nostril(s). omeprazole (PriLOSEC OTC) [address] tablet Take 20 mg by mouth every morning before breakfast. triamcinolone (KENALOG) 0.1 % cream Apply 1 Application topically 2 (two) times a day. Apply to affected area for up to 2 weeks. 80 g 0 No current facility-administered medications for this visit. ALLERGIES / CONTRAINDICATIONS Allergies Allergen Reactions Penicillins Other (see comments) As a baby SOCIAL HISTORY Social History Tobacco Use Smoking status: Every Day Current packs/day: 1.00 Average packs/day: 1 pack/day for 30.0 years (30.0 ttl pk-yrs) Types: Cigarettes Smokeless tobacco: Never Substance Use Topics Alcohol use: Yes Comment: Havent been drinking since April FAMILY HISTORY Family History Problem Relation Name Age of Onset Migraines Mother Candie Skin cancer Father Barney Diabetes Father Barney Sleep apnea Father Barney Stomach problem Sister never figured it out, went gluten free. Hysterectomy Sister ? cancerous No Known Problems Brother Stroke Maternal Grandmother Penny Cancer Maternal Grandfather Heart attack Paternal Grandfather 50 REVIEW OF SYSTEMS Gastrointestinal: Positive for abdominal (belly) pain or cramping, heartburn and nausea. OBJECTIVE Vitals: 02/08/24 0749 BP: 121/73 Pulse: 95 Temp: 36.7 ??C SpO2: 99% PHYSICAL EXAMINATION General: Pleasant her in no acute distress. Appears stated age. Eyes: No icterus. Pupils equal, round, and reactive. Conjunctivae moist and clear. ENT: Hearing intact. Oropharynx clear. Mallampati class I. Neck: Supple without masses, lymphadenopathy or thyromegaly. Respiratory: Clear to auscultation bilaterally. Normal equal chest rise with inspiration bilaterally. CV: RRR without murmur, S1 and S2. Abdomen: Soft, round, nondistended. Mild epigastric tenderness to palpation. No rebound, no rigidity, no masses or hepatosplenomegaly, but exam is somewhat limited due to body habitus. Extremities: No edema. Palpable pedal pulses. Skin: No jaundice, spiders or rashes. Warm and dry. Psych: Alert and oriented x3. Speech is clear and follows commands. Neuro: No focal sensory or strength deficits. No asterixis. Musculoskeletal: Normal gait. No joint swelling in arm or leg joints with full range of motion. Extremities without cyanosis. DIAGNOSTICS Lab: Lab Results Component Value Date WBC 7.2 10/28/2023 HGB 12.0 10/28/2023 HCT 38.6 10/28/2023 MCV 86.2 10/28/2023 PLT 291 10/28/2023 Lab Results Component Value Date NA 139 12/06/2023 KSERUM 4.3 04/26/2023 KPLASMA 4.2 12/06/2023 CL 105 12/06/2023 BICARB 23 12/06/2023 CREATININE 0.69 12/06/2023 EGFRNONBLKAA >60 02/24/2018 EGFRBLKAA >60 02/24/2018 BUN 9 12/06/2023 ANIONGAP 11 12/06/2023 GLUCOSE 100 12/06/2023 CALCIUM 8.9 12/06/2023 Lab Results Component Value Date ALT 25 10/28/2023 AST 21 10/28/2023 ALKPHOS 88 10/28/2023 BILITOT 0.2 10/28/2023 Lab Results Component Value Date CRP 9.6 (H) 12/06/2023 Radiology: MRI/MRCP 04/19/23: IMPRESSION: 1. Moderate dilatation of the common bile duct and central intrahepatic ducts. No definite ductal stones are visualized. There may be some sludge in the distal portion of the common bile duct. There is moderate thickening of the ampulla which may be reactive from a recently passed stone or less likely an ampullary mass. Direct visualization may be beneficial. 2. The gallbladder is distended and shows a small amount of surrounding edema without wall thickening. There is a suggestion of a small stone in the gallbladder. 3. No evidence for pancreatic ductal dilatation or surrounding inflammation. PROCEDURES: Endoscopy: No previous Colonoscopy: 12/10/2023 - One 3 mm polyp in the sigmoid colon, removed with a cold snare. Complete resection. Partial retrieval. - The examination was otherwise normal on direct and retroflexion views. FINAL DIAGNOSIS Colon, sigmoid polyp, biopsy: Hyperplastic polyp. ASSESSMENT / PLAN 1. Cholecystectomy Status Post 2. GERD with epigastric pain and intermittent bloating 3. Morbid Obesity Body Mass Index 40.0-44.9 Adult (HCC) She was tender on exam in the epigastric region. She does describe frequent episodes of epigastric discomfort, lasting 1 to 2 minutes, and may resolve spontaneously or may treat with Tums. She also describes ???attacks?? of more severe epigastric to right upper quadrant discomfort. She was not tender in the right upper quadrant on exam today. We reviewed GERD, triggers, treatments in detail. Printed material was provided. We reviewed cholelithiasis cholecystectomy, her diet, and the possibility of retained stone. We will check her lipase, CMP, CRP, and CBC. We will also proceed with H pyloribreath testing. Pending these results, did discuss consideration of upper endoscopy, ERCP, or additional imaging. - CBC, CMP, CRP, lipase; Future - H. Pylori breath test; Future - Omeprazole (Prilosec), 20 mg, DR tablet, take one tablet by mouth daily before breakfast; Future 4. Constipation 5. Generalized abdominal pain - No complaints today. Following with PCP. Can take intermittent stool softening medication, stool bulking fiber (psyllium, Benefiber, your Benefiber), or MiraLax. 5. Abuse Tobacco Smoking 6. Counseling smoking cessation - Reviewed cessation. Does have nicotine patches on hand and plans to start in the new future. Thank you very much for this consult on this pleasant patient. I have answered all of patient's questions to my best ability. We will plan to see her back in 3 months for followup, but certainly sooner for new or worsening symptoms. No learning barriers present.Patient verbalizes understanding and agreement to today's plan. Total time 59 minutes, 54 minutes spent in counseling and coordination of care. documented in this encounter Plan of Treatment Upcoming Encounters Date Type Department Care Team (Latest Contact Info) Description 03/20/2024 9:30 AM CDT Comprehensive Visit Department of General Surgery in [address] [phone] Yanna Rdz P.A.-C., P.A. [address] [place] [phone] Discharge Disposition: Home or Self Care 03/20/2024 11:00 AM CDT Hospital Encounter Department of Radiology in [address] [phone] Yanna Rdz P.Mary.-C., P.A. [address] [place] [phone] Scheduled Referrals Name Type Priority Associated Diagnoses Order Schedule Gastroenterology and Hepatology office visit (clinic) Outpatient Referral Routine Cholecystectomy Status Post Gastroesophageal Reflux Disease Pain Epigastric Expected: 05/10/2024 (Approximate), Expires: 05/10/2025 documented as of this encounter Results * (ABNORMAL) CBC without [...] Bowling APRN, C.N.P., D.N.P. LAB BLOOD ADD-ON [facility] [address] [place] [address], [facility] in [place] [address] [place] [address] * Helicobacter pylori Breath Test (02/08/2024 9:31 AM CDT) H. pylori C Urea Breath Test Negative Negative 02/09/2024 12:[address] [facility] Comment:Result indicates the absence of current Helicobacter pylori infection. Breath (Mouth) 02/08/2024 9: 31 AM CDT 02/09/2024 10:02 AM CDT Narrative [facility] - 02/09/2024 12:04 PM CDT Specimen Information: Specimen ID: [id number] Specimen Type: Breath Specimen Collection Start Date: 02/08/2024 ??9:31 AM Specimen Received Date: 02/09/2024 10:02 AM Specimen ID: [id number] Specimen Type: Breath Specimen Collection Start Date: 02/08/2024 ??9:48 AM Specimen Received Date: 02/09/2024 10:02 AM Sowmya Hu APRN.NSurekha, D.N.P. LAB MICROBIOLOGY - GENERAL ORDERABLES [facility] [address] [place] [address] [facility] [address] [place] [address] [place] [address] * Comprehensive Metabolic Panel (02/08/2024 9:28 AM CDT) Pathologist [facility] Potassium, P 4.1 3.6 - 5.2 mmol/L [...] Sowmya Hu APRN.N.P., D.N.P. LAB BLOOD ADD-ON [facility] [address] [place] [address], [facility] in [address] [phone] * (ABNORMAL) CRP (C-Reactive Protein) (02/08/2024 9:28 AM CDT) C-Reactive Protein (CRP), P 6.5(H) <5.0 mg/L 02/08/2024 9:59 AM CDT [facility] Blood (Blood, Venous) 02/08/2024 9:28 AM CDT 02/08/2024 9:33 AM CDT Laxmi Bowling APRN C.N.P., D.N.P. LAB BLOOD ADD-ON Performing Organization Address City/[facility]/ZIP Co de Phone Number [facility] [address] [place] [address], [facility] [address] [address] * Lipase (02/08/2024 9:28 AM CDT) Lipase, P 26 13 - 60 U/L 02/08/2024 9: 59 AM CDT [facility] Blood (Blood, Venous) 02/08/2024 9:28 AM CDT 02/08/2024 9:33 AM CDT Laxmi Bowling APRN, C.N.P., D.N.P. LAB BLOOD ADD-ON Performing Organization Address City/[facility]/RUST Co de Phone Number [facility] 2[facility] [address] [place] [address], [facility] in [address] [phone] documented in this encounter Visit Diagnoses Diagnosis Cholecystectomy Status Post- Primary Gastroesophageal Reflux Disease Pain Epigastric Bloating Abdominal Morbid Obesity Body Mass Index 40.0-44.9 Adult (HCC) Constipation Pain Generalized Abdominal Abuse Tobacco Smoking Counseling Smoking Cessation Bloating Abdominal Pain Epigastric documented in this encounter Care Teams Pit Manager Relationship Specialty Start Date End Date Post, Nazario Santos APRN, C.N.P. [address] [place] [phone] PCP - General Family Medicine 12/06/23 documented as of this encounter
--- OUTSIDE RECORDS SUMMARY | 2024-03-04 10:56 | XMS_ITS | Encounter Summary ---
Author Organization [facility] Address [address] [place] [address] Care Team Providers Care Sales Team Member Name Role Phone Post, Nazario Santos APRN C.N.P. Primary Care Provid er Reason for Visit * Reason Onset Date Comments Colonoscopy 12/07/2023 Pre-procedure ed ucation call Encounter Details Date Type Department Care Team (Latest Contact Info) Description 12/07/2023 Clinical Communication Outpatient Procedure Center in [address] [phone] Chloe Diamond, RGopi [address] [place] [phone] Colonoscopy (Pre-procedure education call) Social History Tobacco Use Types Packs/Day Years [...] PM CDT documented as of this encounter Miscellaneous Notes * Telephone Encounter - Chloe Diamond R.N. - 12/07/2023 10:49 AM CDT Procedure: Colonoscopy Prep: Ash Was prep sent to the pharmacy? Has she received the prep? yes yes History of Chronic Constipation or Incomplete bowel prep? no BMI or last known BMI BMI <45 can schedule CF, LC, and AL BMI<50 for AU and RW, if BMI 50-55 need anesthesia approval BMI >55 refer to [place] BMI: There is no height or weight on file to calculate BMI. Diabetic: No Educated per [facility] Patient Education: Diabetes Medication Instructions: Tests, Procedures, and Surgeries that require Fasting. Weight loss/GLP-1 medications: Phentermine (Adipex) - Semaglutide (Rybelsus) - Liraglutide (Victoza, Saxenda) - Lixisenatide (Adlyxin) - Exenatide (Byetta) - Exenatide ER (Bydureon) - Dulaglutide (Trulicity) - Tirzepatide (Mounjaro) - Semaglutide (Ozempic, Wegovy) - No Phentermine needs to be held for 7 days prior. Daily oral meds need to be held the evening prior, and the day of the procedure. Daily injections need to be held the day of the procedure. Weekly injections need to be held for 7 days prior. Anticoagulation: - Aspirin 325mg - Warfarin (Coumadin) - Apixaban (Eliquis) - Dabigatran etexilate (Pradaxa) - Rivaroxaban (Xarelto) - Enoxaparin (Lovenox) - Fondaparinux (Arixtra) - Clopidogrel (Plavix) - Ticagrelor (Brilinta) - Prasugrel (Effient) No Arrival Time: Patient informed of the auto text or phone call with arrival time the evening prior: May still call to obtain arrival time: yes Reviewed booklet with patient including prep, procedural expectations, NPO instructions, medicationinstructions, arrival time and that they need a line driver: yes Education complete. Patient verbalizes understanding of education provided and number to call if questions arise: [facility] Endoscopy [facility] [phone] yes Additional Comments: If patient is concerned she is not emptying pre-procedural, please call the listed number, based onlocation, the morning of. [phone] [facility] [phone] [facility] [phone] [facility] [phone] [facility] [phone] [facility] documented in this encounter Plan of Treatment Upcoming Encounters Date Type Department Care Team (Latest Contact Info) Description 03/20/2024 9:30 AM CDT Comprehensive Visit Department of General Surgery in [place] [address] [place] [phone] CholYanna farfan P.A.-C., P.A. [address] [place] [phone] Discharge Disposition: Home or Self Care 03/20/2024 11:00 AM CDT Hospital Encounter Department of Radiology in [place], [place] [address] [place] [phone] Yanna Rdz P.A.-C., P.A. [address] [place] [phone] documented as of this encounter Visit Diagnoses Not on filedocumented in this encounter Care Teams Sales Team Member Relationship Specialty Start Date End Date Post, Nazario Santos APRN, C.N.P. [address] [place] [phone] PCP - General Family Medicine 12/06/23 documented as of this encounter
--- OUTSIDE RECORDS SUMMARY | 2024-03-04 10:56 | XMS_ITS | Encounter Summary ---
Author Organization [facility] Address [address] [place] [address] Care Team Providers Care Post Partum Nurse Name Role Phone Post, Nazario Santos APRN C.N.P. Primary Care Provid er Encounter Details Date Type Department Care Team (Late st Contact Info) Description 12/03/[address] [facility] PRE/POST [address] [place] [address] Beth Alvarez, RChristopheNChristophe [address] [place] [address] Social History Tobacco Use Types Packs/Day Years [...] Comprehensive Visit Department of General Surgery in [address] [phone] Yanna Rdz P.A.-C., P.A. [address] [place] [phone] Discharge Disposition: Home or Self Care 03/20/2024 11:00 AM CDT Hospital Encounter Department of Radiology in [address] [phone] Yanna Rdz P.A.-C., P.A. [address] [place] [phone] documented as of this encounter Visit Diagnoses Not on filedocumented in this encounter Care Teams Post Partum Nurse Relationship Specialty Start Date End Date Post, Nazario Santos APRN[place] [phone] PCP - General Family Medicine 12/06/23 documented as of this encounter
--- OUTSIDE RECORDS SUMMARY | 2024-03-04 10:56 | XMS_ITS | Encounter Summary ---
Author Organization [facility] Address [address] [place] [address] Care Team Providers Care Maintenance Plumber Name Role Phone Post, Nazario Santos APRN, C.N.P. Primary Care Provid er Reason for Visit * Appointment Request (Routine) - Closed Specialty Diagnoses / Procedures Referred By Melisa murry Referred To Contact Family Medicine Referral ID Status Reason Start Date Expiration Date Visits Re quested Visits Authorized [id number] Closed 12/06/2023 12/05/2024 1 1 Encounter Details Date Type Department Care Team (Latest Contact Info) Description 12/06/2023 10:30 AM CDT Office Visit Department of Family Medicine, [facility], in [address] [place] [address] Post, Nazario Santos APRN, C.N.P. [address] [place] [phone] Symptom Urinary (Primary Dx); Rash; Pain Generalized Abdominal; Abnormal Findings On Diagnostic Imaging Of Other Abdominal Regions Including Retroperitoneum Discharge Disposition: Home or Self Care Social [...] Sign Reading Time Taken Comments Blood Pressure 109/79 12/06/2023 10:10 AM CDT Pulse 86 12/06/2023 10:10 AM CDT Temperature 36.5 ??C (97.7 ??F) 12/06/2023 10:10 AM C DT Respiratory Rate - - Oxygen Saturation - - Inhaled Oxygen Concentration - - Weight 118 kg (261 lb 3.9 oz) 12/06/2023 10:10 A M CDT Height - - Body Mass Index - - documented in this encounter Progress Notes * Dean, Nazario Santos APRN, C.N.P. - 12/06/2023 10:30 AM CDT SUBJECTIVE CHIEF COMPLAINT / REASON FOR VISIT Susan Proctor is a 43 y.o. female who presents for evaluation of No chief complaint on file.. HISTORY OF PRESENT ILLNESS From recent [facility] care visit December 03 Patient presents today for evaluation of rash [...] No recent fevers. Is otherwise feeling well. Today in clinic: Starts with an itch over normal appearing skin, then she gets the bumps. No major recent abdominal pain episodes, a couple little ones. No other recent changes in bowels. Did have an episode of rust colored urine yesterday. Today it is back to normal. Maybe a little dehydration, no advil use, alcohol, supplement use. No dysuria, vaginal changes (due for period), back/flank pain, She did have itching all over when she had the gallbladder issue. 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 Knees swell during change of weather Right lower leg gets a divot, maybe from mild swelling, not excessive. The following portions of the patient's history were reviewed and updated as appropriate: allergies, current medications, family history, medical history, social history, surgical history, and problem list. OBJECTIVE PHYSICAL EXAM Constitutional General: She is not in acute distress. Cardiovascular Rate and Rhythm: Normal rate. Pulmonary Effort: Pulmonary effort is normal. Musculoskeletal General: Normal range of motion. Skin General: Skin is warm and dry. Findings: Rash (very fine papular rash scattered across her trunk, arms, and now extending down onto the leg slightly) present. Neurological Mental Status: She is alert and oriented to person, place, and time. ASSESSMENT / PLAN #1 Symptom Urinary #2 Rash #3 Pain Generalized Abdominal #4 Abnormal Findings On Diagnostic Imaging Of Other Abdominal Regions Including Retroperitoneum With her rash spreading further throughout much of her body, I have less suspicion that this is a photo dermatosis. 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 She does have some GI symptoms that could easily be explained by post cho lecystectomy however she did have some colitis seen on imaging. She does have a colonoscopy with request for biopsies to be completed this Wednesday. Currently I do not see any reason why she could not continue with the colonoscopy as scheduled. With her various histories and concerns and with the change of the rash now, she is interested in further assessment. Will repeat various lab work as below. Since she did have rust colored urine yesterday, will check urinalysis, could strictly be dehydration alone though. If everything comes back clear and her colonoscopy does not show anything else significant, I wouldrecommend she see GI in person with consideration of additional assessment and recommendations. Since triamcinolone 0.1% is not helping significantly, I recommend she utilize Zyrtec 10 mg daily and provided her with clobetasol cream to help her reduce significant pruritus. Reviewed the the importance of being careful by the eyes and mouth and using this as short amount of time as possible. Other orders - Connective Tissue Diseases [place] - CRP (C-Reactive Protein) - Basic Metabolic Panel - Urinalysis with Microscopic if Indicated - Albumin, Random, Urine - clobetasoL (TEMOVATE) 0.05 % cream; Apply 1 Application topically 2 (two) times a day. Apply to rash., Starting 12/06/2023, Normal - Microscopic Automated Nazario Moran APRN, C.N.P. documented in this encounter Plan of Treatment Upcoming Encounters Date Type Department Care Team (Latest Contact Info) Description 03/20/2024 9:30 AM CDT Comprehensive Visit Department of General Surgery in [address] [phone] Yanna Rdz P.A.-C., P.A. [address] [place] [phone] Discharge Disposition: Home or Self Care 03/20/2024 11:00 AM CDT Hospital Encounter Department of Radiology in [address] [phone] Yanna Rdz P.A.-C., P.A. [address] [place] [phone] documented as of this encounter Procedures Procedure Name Priority Date/Time Associated Diagnosis Comments URINALYSIS WITH MICROSCOPIC IF INDICATED, U Routine 12/06/2023 11:16 AM CDT Symptom Urinary Rash Pain Generalized Abdominal Abnormal Findings On Diagnostic Imaging Of Other Abdominal Regions Including Retroperitoneum [place] URINALYSIS AUTO W MICRO Routine 12/06/2023 11:16 AM CDT CONNECTIVE TISSUE DISEASE CASCADE, BERNARD, S Routine 12/06/2023 11:16 AM CDT Symptom Urinary Rash Pain Generalized Abdominal Abnormal Findings On Diagnostic Imaging Of Other Abdominal Regions Including Retroperitoneum ALBUMIN, RANDOM, U Routine 12/06/2023 11 :16 AM CDT Symptom Urinary Rash Pain Generalized [...] Imaging Of Other Abdominal Regions Including Retroperitoneum documented in this encounter Results * (ABNORMAL) Microscopic Automated (12/06/2023 11:16 AM [...] Moran APRN, C.N.P. LAB URINE OR DERABLES [facility] [address] [place] [address], [facility] [place] [address] [place] [phone] * Albumin, Random, Urine (12/06/2023 11:16 AM [...] Moran APRN, C.N.P. LAB URINE OR DERABLES [facility] [address] [place] [address], [facility] [place] [address] [place] [address] * (ABNORMAL) Urinalysis with Microscopic if Indicated [...] 8.0 12/06/2023 11:58 AM CDT [facility] Specific [place] 1.020 1.001 - 1.035 12/06/2023 11:58 AM CDT [facility] Urobilinogen 0.2 0.2 - 1.0 mg/dL 12/06/2023 11:58 AM CDT [facility] Urine (Urine, Midstream) 12/06/2023 11:16 AM CDT 12/06/2023 11:58 AM CDT Nazario Moran APRN, C.N.P. LAB URINE OR DERABLES Performing Organization Address City/[facility]/ZIP Co de Phone Number [facility] [address] [place] [address], [facility] [place] [facility] [place] [address] [place] [address] * Basic Metabolic Panel (12/06/2023 11:16 AM [...] Moran APRN, C.N.P. LAB BLOOD AD D-ON [facility] [address] [place] [address], [place] [facility] [place] [address] [place] [address] * (ABNORMAL) CRP (C-Reactive Protein) (12/06/2023 11:16 AM CDT) C-Reactive Protein (CRP), P 9.6(H) <5.0 mg/L 12/06/2023 7:32 PM CDT R[facility] Blood (Blood, Venous) 12/06/2023 11:16 AM CDT 12/06/2023 7:08 PM CDT Nazario Moran APRN, C.N.P. LAB BLOOD AD D-ON [facility] [address] [place] [address], [facility] in [address] [place] [address] * Connective Tissue Diseases [place] (12/06/2023 11:16 AM CDT) Antinuclear Ab, S 0.4 <=1.0 (Negative ) U 12/07/2023 12:57 PM CDT [facility] Comment: ----ADDITIONAL INFORMATION---- Method: Enzyme-linked immunoassay using HEp-2 nuclear extract supplemented with purified antigens. Cyclic Citrullinated Peptide Ab, S <15.6 <20.0 (Negative ) U 12/07/2023 1:15 PM CDT [facility] Interpretation SEE COMMENT 1:15 PM CDT [facility] Comment: Tests for antibodies to dsDNA and VANESA antigens are not performed automatically unless the YENI result is > or = 3.0 U. ??Studies performed at [facility] indicate that positive YENI results <3.0 U are rarely accompanied by positive second order tests. Blood (Blood, Venous) 12/06/2023 11:16 AM CDT 12/07/2023 7:05 AM CDT Nazario Moran APRN, C.N.P. LAB BLOOD AD D-ON [facility] [address] [place] [address] [facility] [address] [place] [address] documented in this encounter Visit Diagnoses Diagnosis Symptom Urinary- Primary Rash Pain Generalized Abdominal Abnormal Findings On Diagnostic Imaging Of Other Abdominal Regions Including Retroperitoneum documented in this encounter Care Teams Maintenance Plumber Relationship Specialty Start Date End Date Post, Nazario Santos APRN, C.N.P. [facility] [address] [place] [address] PCP - General Family Medicine 12/06/23 documented as of this encounter
--- OUTSIDE RECORDS SUMMARY | 2024-03-04 10:56 | XMS_ITS | Encounter Summary ---
Author Organization [facility] Address [address] [place] [address] Care Team Providers Care Cardiac Cath Lab Technologist Name Role Phone Post, Nazario Santos APRN, C.N.P. Primary Care Provid er Reason for Referral * Outpatient (Routine) - Closed Specialty Diagnoses / Procedures Referred By Melisa murry Referred To Contact Diagnoses Pain Generalized Abdominal Abnormal Findings On Diagnostic Imaging Of Other Abdominal Regions Including Retroperitoneum Screening Colon Cancer Average Risk Procedures Colonoscopy Post, Nazario Santos APRN, C.N.P. [address] [place] [phone] [facility] Region Referral ID Status Reason Start Date Expiration Date Visits Re quested Visits Authorized [id number] Closed 10/28/2023 10/27/2024 1 1 Reason for Visit * Outpatient (Routine) - Closed Specialty Diagnoses / Procedures Referred By Melisa murry Referred To Contact Diagnoses Pain Generalized Abdominal Abnormal Findings On Diagnostic Imaging Of Other Abdominal Regions Including Retroperitoneum Screening Colon Cancer Average Risk Procedures Colonoscopy Post, Nazario Santos APRN, C.N.P. [address] [place] [phone] [facility] Region Referral ID Status Reason Start Date Expiration Date Visits Re quested Visits Authorized [id number] Closed 10/28/2023 10/27/2024 1 1 Encounter Details Date Type Department Care Team (Latest Contact Info) Description 12/10/2023 1:20 PM CDT - 12/10/2023 11:59 PM CDT Hospital Encounter Outpatient Procedure Center in [address] [phone] Nazario Moran APRN, C.N.P. [address] [place] [phone] James Argueta M.D. [address] [place] [phone] Pain Generalized Abdominal; Abnormal Findings On Diagnostic Imaging Of Other Abdominal Regions Including Retroperitoneum; Screening Colon Cancer Average Risk Discharge Disposition: Home or Self Care Social [...] Sign Reading Time Taken Comments Blood Pressure 105/65 12/10/2023 3:34 PM CDT Pulse 81 12/10/2023 3:34 PM CDT Temperature 36.2 ??C (97.2 ??F) 12/10/2023 3:18 PM CD T Respiratory Rate 18 12/10/2023 3:34 PM CDT Oxygen Saturation 99% 12/10/2023 3:34 PM CDT Inhaled Oxygen Concentration - - Weight - - Height - - Body Mass Index - - documented in this encounter Medications at Time of Discharge Medication Sig Dispensed Refills Start Date End Date acetaminophen (TYLENOL) 500 mg tablet Take 1,000 mg by mouth. 05/10/2016 fluticasone propionate (FLONASE) 50 mcg/actuation nasal spray Administer 1 spray into nostril(s). 07/29/2015 clobetasoL (TEMOVATE) 0.05 % cream Apply 1 Application topically 2 (two) times a day. Apply to rash. 30 g 12/06/2023 02/08/2024 GaviLyte-C 240-22.72-6.72 -5.84 gram solution Take 4,000 mL by mouth once. 10/28/2023 01/17/2024 omeprazole (PriLOSEC OTC) [address] tablet Take 20 mg by mouth as needed. 04/18/2023 02/08/2024 triamcinolone (KENALOG) 0.1 % creamIndications:[place] titis Apply 1 Application topically 2 (two) times a day. Apply to affected area for up to 2 weeks. 80 g 12/04/2023 02/08/2024 documented as of this encounter Miscellaneous Notes * Result Encounter Note - James Argueta M.D. - 12/15/2023 12:03 PM CDT I have reviewed the final pathology report and the identified diagnosis is consistent with the patient's clinical presentation. * Result Encounter Note - James Argueta M.D. - 12/15/2023 12:03 PM CDT The patient's recent colonoscopy revealed a benign hyperplastic polyp. I recommend a repeat screening colonoscopy in 10 years. These results will be communicated to the patient by the Endoscopy Call Center. The patient should follow up with her primary care provider in regards to her ongoing symptoms. documented in this encounter Plan of Treatment Upcoming Encounters Date Type Department Care Team (Latest Contact Info) Description 03/20/2024 9:30 AM CDT Comprehensive Visit Department of General Surgery in [address] [phone] Yanna Rdz P.A.-C., P.A. [address] [place] [phone] Discharge Disposition: Home or Self Care 03/20/2024 11:00 AM CDT Hospital Encounter Department of Radiology in [address] [phone] Yanna Rdz P.A.-C., P.A. [address] [place] [phone] Scheduled Orders Name Type Priority Associated Diagnoses Orde r Schedule Glucose, POCT Point of Care Testing-Docked Device Routine Routine lab collecti on (next collection) for 1 Occurrences starting 12/10/2023 until 12/10/2023 documented as of this encounter Procedures Procedure Name Priority Date/Time Associated Diagnosis Comments GI PROCEDURE NOTE Routine 12/10/2023 3:1 5 PM CDT Pain Generalized Abdominal Abnormal Findings On Diagnostic Imaging Of Other Abdominal Regions Including Retroperitoneum Screening Colon Cancer Average Risk COLONOSCOPY Routine 12/10/2023 3:15 PM CDT Pain Generalized Abdominal Abnormal Findings On Diagnostic Imaging Of Other Abdominal Regions Including Retroperitoneum Screening Colon Cancer Average Risk SURGICAL PATHOLOGY Routine 12/10/2023 3: 03 PM CDT documented in this encounter Results * GI Procedure Note (12/10/2023 3:15 PM CDT) 12/10/2023 3:15 PM CDT Impressions [employer] - 12/10/2023 3:19 PM CDT Post-op Diagnoses: ? - One 3 mm polyp in the sigmoid colon, removed with a cold snare. ? Complete resection. Partial retrieval. ? - The examination was otherwise normal on direct and retroflexion views. Narrative [facility] [employer] - 12/10/2023 3:19 PM CDT [facility] Patient Name: Susan Proctor Procedure Date: [...] preparation was evaluated using the BBPS ? ([place] Bowel Preparation Scale) with scores of: ? [...] C.N.P. GI PROCEDURE ORDERABLES Performing Organization Address City/State/[facility] Co de Phone Number [facility] * Surgical Pathology (12/10/2023 3:03 PM CDT) [...] Polyp (Colon) 12/10/2023 3:0 3 PM CDT Edouard Minturn M.D. LAB SURG PATH ORDERA BLES [facility] [address] [place] [address], [facility] ECLR [address] [facility] [address] [place] [address] documented in this encounter Visit Diagnoses Diagnosis Pain Generalized Abdominal Abnormal Findings On Diagnostic Imaging Of Other Abdominal Regions Including Retroperitoneum Screening Colon Cancer Average Risk documented in this encounter Administered Medications Inactive Administered Medications - up to 3 most recent administrations Medication Order MAR Action Action Date Dose Rate Site Lactated Ringer's 20 mL/hr, intravenous, Continuous, Starting on Wed12/10/23 at 1500, Pre-Op Rate/Dose Verify 12/10/2023 2:39 PM CDT 20 mL/hr New Bag 12/10/2023 2:31 PM CDT 20 mL/hr 20 mL/hr documented in this encounter Care Teams Cardiac Cath Lab Technologist Relationship Specialty Start Date End Date Post, Nazario Santos APRN, C.N.P. [address] [place] [phone] PCP - General Family Medicine 12/06/23 documented as of this encounter
--- OUTSIDE RECORDS SUMMARY | 2024-03-04 10:56 | XMS_ITS | Encounter Summary ---
Author Organization [facility] Address [address] [place] [address] Care Team Providers Care Livestock Farm Manager Name Role Phone Burton Clay M.D. Primary Care Provider [phone] Encounter Details Date Type Department Care Team (Late st Contact Info) Description 12/03/2023 Patient Self-Triage CONNECTED CARE Symptom Ribbon Tier, Provider Social History Tobacco Use Types Packs/Day Years [...] Comprehensive Visit Department of General Surgery in [address] [phone] Yanna Rdz P.Mary.-C., P.A. [address] [place] [phone] Discharge Disposition: Home or Self Care 03/20/2024 11:00 AM CDT Hospital Encounter Department of Radiology in [address] [phone] Yanna Rdz P.A.-C., P.A. [address] [place] [phone] documented as of this encounter Visit Diagnoses Not on filedocumented in this encounter Care Teams Livestock Farm Manager Relationship Specialty Start Date End Date Burton Clay M.D. [address] [place] [phone] PCP - General Family Medicine 10/28/23 12/05/23 documented as of this encounter
== END 2024-03-04 10:18 | disposition home or self-care (01) ==
PROVIDERS: PCP Family Medicine; Visit Provider Physician Assistant
DX: L98.9 Disorder of the skin and subcutaneous tissue, unspecified (principal)
CPT/HCPCS: 87070; 87077

== ENCOUNTER 2024-07-27 09:55 | Outpatient (CLI) | payer OTHER, SELFPAY ==
[2024-07-27 14:20] LABS: SARS PCR* Negative SARS-CoV-2 (Negative)
== END 2024-07-27 09:56 | disposition home or self-care (01) ==
LOC: KYNREF 09:55
PROVIDERS: PCP Family Medicine; Visit Provider Nurse Practitioner Family
DX: J40 Bronchitis, not specified as acute or chronic (principal)
CPT/HCPCS: 87635

== ENCOUNTER 2025-01-14 14:55 | Outpatient (CLI) | payer OTHER, SELFPAY | END 2025-01-14 14:56 | disposition home or self-care (01) | LOC: NFLDUCREF 14:55 | PROVIDERS: Visit Provider Family Medicine | DX: L02.91 Cutaneous abscess, unspecified (principal) | CPT/HCPCS: 87070 ==